=== PATIENT | female | born 1945 | race Caucasian/White ===

== ENCOUNTER → 2024-01-13 15:33 | Outpatient (REF) | payer MEDICARE, BC, SELFPAY | LOC: HWRAD 15:33 | PROVIDERS: ATTENDING PHYSICIAN Family Medicine | DX: R05.1 Acute cough (principal) | CPT/HCPCS: 71046 ==

== ENCOUNTER 2024-12-04 16:26 | Inpatient (IN) | payer MEDICARE, BC, SELFPAY ==
[2024-12-04] VITALS (10 sets, daily range): BP systolic 105–158; BP diastolic 52–99; BMI 37.6; BMI 36.8
[2024-12-04 12:47] LABS: % Basophils 0.8 % (0-2); % Eosinophils 1.7 % (0-6); % Immature Granulocytes 0.4 % (0-0.5); % Lymphocytes 17.1 % (20.5-51.1); % Monocytes 4.8 % (1.7-9.3); % Neutrophils 75.2 % (42.2-75.2); Absolute Basophils 0.1 10^3/uL (0-0.2); Absolute Eosinophils 0.1 10^3/uL (0-0.7); Absolute Lymphocytes 1.3 10^3/uL (1.2-3.4); Absolute Monocytes 0.4 10^3/uL (0.1-0.6); Absolute Neutrophils 5.9 10^3/uL (1.4-6.5); Hematocrit 42.3 % (37.0-47.0); Mean Corp Hgb Conc. 33.1 g/dL (33.0-37.0); Mean Corpuscular Volume 87.8 fL (81.0-99.0); Mean Platelet Volume 9.3 fL (7.4-10.4); Nucleated Red Blood Cells % 0 %; Platelet Count 301 10^3/uL (130-400); Red Blood Cell Count 4.82 10^6/uL (4.20-5.40); Red Cell Dist. Width 13.4 % (11.5-14.5); White Blood Cell Count 7.8 10^3/uL (4.8-10.8)
[2024-12-04 13:00] LABS: ALT (SGPT) 14 U/L (0-35); AST (SGOT) 21 U/L (14-36); Albumin 4.4 g/dl (3.5-5.0); Alkaline Phosphatase 76 U/L (38-126); Blood Urea Nitrogen 20 mg/dl (7-17); Calcium 9.6 mg/dl (8.4-10.2); Carbon Dioxide 26 mmol/L (22-30); Chloride 100 mmol/L (98-107); Glucose 135 mg/dl (70-99); Potassium 4.3 mmol/L (3.5-5.1); Sodium 137 mmol/L (135-145); Total Bilirubin 0.9 mg/dl (0.2-1.3); Total Protein 6.8 g/dl (6.3-8.2); eGFR > 60.00
--- NOTE | 2024-12-04 13:47 | ED.GENMED ---
History of Present Illness
<Rodrigo Hoffman PA-C - Last Filed: 12/04/24 15:45>
General
Chief Complaint: Breathing Problem
Source: patient
Exam Limitations: none
Time Seen by Provider: 12/04/24 13:35
History of Present Illness
History of Present Illness:
79 year old female with history of HTN, hyperlipidemia, remote smoker presents with worsening SOB/HARO over the past 2 weeks. She now notes SOB at rest. No chest pain. No known leg swelling, calf pain or weight gain. She notes SOB is worse laying
flat. Father at early age from [place]. No recent travel or surgery. No history of diabetes. She states last night was the worst it has been. No other complaints at this time.
Past History
<Rodrigo Hoffman PA-C - Last Filed: 12/04/24 15:45>
Past History
ED Past Medical History: HTN
ED Past Surgical History: Gynecological
Social History
Tobacco: Non-smoker
Personal:
Living: with family
Phy Exam
<BOZENA Buck Last Filed: 12/04/24 15:45>
Physical Exam
Physical Exam:
General: Anxious appearing female no acute respiratory distress
HEENT: Normocephalic atraumatic
Heart: Regular rate and rhythm
Lungs: Clear no wheeze
Abdomen is soft nontender nondistended no guarding or rebound
Extremities: Mild pitting edema bilateral lower extremities
Skin: Warm no rash
Scores
<Rodrigo Hoffman PA-C - Last Filed: 12/04/24 15:45>
Heart Failure Risk
Heart Failure Risk Score: Not Applicable
Course
<BOZENA Buck Last Filed: 12/04/24 15:45>
Orders/Labs/Results
Orders:
Orders
12/04/24 12:18
Electrocardiogram (*1) Urgent
Reason for Study: Shortness of Breath
12/04/24 12:19
EKG- Treatment ONCE
12/04/24 12:27
Complete Blood Count/With Diff Urgent
Comprehensive Metabolic Panel Urgent
NT-proBNP Urgent
Comment: ADD ON
Troponin I Urgent
12/04/24 13:53
Add On- LAB Urgent
Comments:: In lab
Tests Added?: BNP
12/04/24 13:57
CT Chest PE Study Urgent
Comment:
Reason For Exam: sob
12/04/24 14:22
COVID-19 Antigen Urgent
Source: Nasal Swab
Influenza A+B Rapid Molecular Urgent
COMPA Source: Nasal Swab
Specimen Description:
12/04/24 14:48
Troponin I Urgent
12/04/24 15:38
Furosemide [Lasix] 40 mg IV NOW STA
Abnormal Lab Results
12/04/24 12/04/24
12:27 14:48
Lymphocytes % 17.1 L %
(20.5-51.1)
BUN 20 H mg/dl
(7-17)
Glucose 135 H mg/dl
(70-99)
Troponin I 0.070 H* ng/ml 0.079 H* ng/ml
12/04/24 12:27
12/04/24 12:27
Vital Signs
Initial and Last Documented VS:
Initial Vital Signs
Temp Pulse Resp BP Pulse Ox
98.5 F 98 16 156/77 92
12/04/24 12:15 12/04/24 12:15 12/04/24 12:15 12/04/24 12:15 12/04/24 12:15
Last Documented Vital Signs
Temp Pulse Resp BP Pulse Ox
98.5 F 98 16 156/77 95
12/04/24 12:15 12/04/24 12:15 12/04/24 12:15 12/04/24 12:15 12/04/24 14:41
<Aldo Singh MD - Last Filed: 12/04/24 15:35>
Orders/Labs/Results
Orders:
Orders
12/04/24 12:18
Electrocardiogram (*1) Urgent
Reason for Study: Shortness of Breath
12/04/24 12:19
EKG- Treatment ONCE
12/04/24 12:27
Complete Blood Count/With Diff Urgent
Comprehensive Metabolic Panel Urgent
NT-proBNP Urgent
Comment: ADD ON
Troponin I Urgent
12/04/24 13:53
Add On- LAB Urgent
Comments:: In lab
Tests Added?: BNP
12/04/24 13:57
CT Chest PE Study Urgent
Comment:
Reason For Exam: sob
12/04/24 14:22
COVID-19 Antigen Urgent
Source: Nasal Swab
Influenza A+B Rapid Molecular Urgent
COMPA Source: Nasal Swab
Specimen Description:
12/04/24 14:48
Troponin I Urgent
12/04/24 15:38
Furosemide [Lasix] 40 mg IV NOW STA
Abnormal Lab Results
12/04/24 12/04/24
12:27 14:48
Lymphocytes % 17.1 L %
(20.5-51.1)
BUN 20 H mg/dl
(7-17)
Glucose 135 H mg/dl
(70-99)
Troponin I 0.070 H* ng/ml 0.079 H* ng/ml
12/04/24 12:27
12/04/24 12:27
Vital Signs
Initial and Last Documented VS:
Initial Vital Signs
Temp Pulse Resp BP Pulse Ox
98.5 F 98 16 156/77 92
12/04/24 12:15 12/04/24 12:15 12/04/24 12:15 12/04/24 12:15 12/04/24 12:15
Last Documented Vital Signs
Temp Pulse Resp BP Pulse Ox
98.5 F 98 16 156/77 95
12/04/24 12:15 12/04/24 12:15 12/04/24 12:15 12/04/24 12:15 12/04/24 14:41
<Rodrigo Hoffman PA-C - Last Filed: 12/04/24 15:45>
MDM/Problems Addressed
Differential Diagnosis Includes:
Shortness of breath dyspnea on exertion and orthopnea. Question CHF versus volume overload versus ACS. No risk factors for PE but D-dimer is pending. BNP is pending. EKG shows sinus rhythm with PVCs no obvious ischemic changes. Troponin is
slightly elevated at 0.070.
No current chest pain at rest, she is in no respiratory distress but minimal exertion does reproduce shortness of breath
<Rodrigo Hoffman PA-C - Last Filed: 12/04/24 15:45>
*Critical Care Note
Total Time (30-74mins, 75-104mins- exclusive of procedures): Not Applicable
<Rodrigo Hoffman PA-C - Last Filed: 12/04/24 15:45>
Update Note
Update Note:
CT of chest was ordered instead of screening with D-dimer secondary to pronounced shortness of breath and hypoxia requiring 4 L. There is no pulmonary embolism. There is small to medium sized bilateral pleural effusions. BNP is 4420. Repeat
troponin about the same as the first. I suspect acute CHF. Lasix ordered. Discussed with emergency room attending admitted to hospitalist
ED Attending Note
<Rodrigo Hoffman PA-C - Last Filed: 12/04/24 15:45>
-
Portions of this chart may have been created with voice recognition software.� Occasional wrong word or��sound alike� substitutions may have occurred due to the inherent limitations of voice recognition software.
<Aldo Singh MD - Last Filed: 12/04/24 15:35>
ED Attending Note
Patient seen and examined by attending physician: Yes
I performed the substantive portion of visit, reviewed & personally made and approve the management plan that is documented in note by myself or PING.: Yes
ED Attending Note:
I have seen and evaluated the patient with a [id number] encounter. I have spoken to the [PA] and involved in the medical history, the physical exam, medical decision making.
Evaluation and management service: agree unless noted differently below.
Results interpretation: agree unless noted differently below.
79-year-old woman with history of hypertension, hyperlipidemia presenting to the emergency room shortness of breath. At first it was on exertion now it is constant. No chest pain. Mild leg swelling. No recent travel hemoptysis history of blood
clots.
On examination patient is resting comfortably. Her lungs are clear to auscultation with fine crackles at the bases. She does have mild edema bilaterally.
79-year-old woman presenting to the emergency room shortness of breath on exertion that is now constant. Vitals are notable for oxygen in the low 90s and exam does show mild edema. Concern for ACS versus new onset CHF however concern for PE as
well. Will check blood work and CT PE. Patient will need admission.
Discharge Plan
Departure
Patient Disposition: Admit
Date of Disposition: 12/04/24
Time of Disposition: 15:44
Presentation/result/management discussed w/ accepting MD/DO: Hospitalist
Discharge Problem:
Acute CHF
Prescriptions:
No Action
cyanocobalamin (vitamin B-12) 1,000 mcg Tablet
1,000 mcg PO DAILY Qty: 0
amlodipine 10 MG tablet
10 mg PO DAILY
simvastatin [Zocor] 20 mg Tablet
20 mg PO HS Qty: 0
Centrum Silver 1 EACH tablet
1 tab PO DAILY
cholecalciferol (vitamin D3) [Vitamin D3] 1,000 UNIT tablet
1,000 unit PO DAILY
omeprazole 20 MG tablet,delayed release (DR/EC)
20 mg PO DAILY
latanoprost 0.005 % Drops
1 drp BOTH EYES HS
temazepam 7.5 mg Capsule
7.5 mg PO HS
duloxetine [Cymbalta] 30 mg Capsule,Delayed Release(Dr/Ec)
30 mg PO DAILY
magnesium glycinate 100 mg Tablet
200 mg PO DAILY
Referrals:
Lory Lester MD [Family Provider] -
Interventions
Interventions:
*Risk Screen - Suicide Last Done: 12/04/24 12:20
*General Assessment Last Done: 12/04/24 13:55
*Neglect/Abuse Screening Last Done: 12/04/24 12:20
*ED- Fall Risk Assessment Last Done: 12/04/24 13:55
*ED COVID-19 Vaccine History Last Done: 12/04/24 13:55
ED- Cardiac Assessment Last Done: 12/04/24 13:55
ED- Pulmonary Assessment Last Done: 12/04/24 14:41
Discharge Date and Time
Print Language: [place]LAND[place]
[2024-12-04 15:07] LABS: NT-proBNP 4420 pg/ml
[2024-12-04 15:22] LABS: Troponin I 0.079 ng/ml
[2024-12-04 15:23] LABS: COVID-19 Antigen Negative (Negative)
--- NOTE | 2024-12-04 15:47 | HPS.HSE ---
Family Physician
-
Family Physician: Lory Lester
Chief Complaint
-
Shortness of Breath
History of Present Illness
Patient is an 79 y/o female past medical history of hypertension, hyperlipidemia, chronic pain and insomnia who presents with shortness of breath. Patient reports increasing dyspnea on exertion over the past few weeks. Last night she developed
worsening shortness of breath even at rest. She denies chest pains, palpitations, cough, lower extremity edema or changes in weight.
Medical History
Past Medical History
Past Medical History: Reports Other
Additional Past Medical History:
Essential Hypertension
Hyperlipidemia
Cervical Radiculopathy
Osteoarthritis
Insomnia
Glaucoma
Past Surgical History: Reports Other
Additional Past Surgical History:
Hysterectomy
Meniscus Surgery
Social History
Tobacco: Former Smoker (Quit over 30 years ago)
Alcohol: Occasional
Family History
Family History: Not pertinent
Allergies / Home Medications
Allergies reflects when Allergies were last updated in [facility].
Home Medications with original date entered in [facility]
Allergy/Medication List:
Allergies
Allergy/AdvReac Type Severity Reaction Status Date / Time
acetaminophen [From Tylenol] Allergy Swelling Verified 07/12/14 23:17
NSAIDS (Non-Steroidal Allergy Unknown Verified 07/12/14 23:17
Anti-Inflamma
Home Medications
amlodipine 10 mg tablet 10 mg PO DAILY 07/12/14
cholecalciferol (vitamin D3) 25 mcg (1,000 unit) tablet (Vitamin D3) 1,000 unit PO DAILY 07/12/14
cyanocobalamin (vitamin B-12) 1,000 mcg tablet 1,000 mcg PO DAILY ##0 07/12/14
xlidtiyt-cac-gnici acid 0.4 mg-lycopene 300 mcg-lutein 250 mcg tablet (Centrum Silver) 1 tab PO DAILY 07/12/14
omeprazole 20 mg tablet,delayed release 20 mg PO DAILY 07/12/14
simvastatin 20 mg tablet (Zocor) 20 mg PO HS ##0 07/12/14
duloxetine 30 mg capsule,delayed release (Cymbalta) 30 mg PO DAILY 12/04/24
latanoprost 0.005 % eye drops 1 drp BOTH EYES HS 12/04/24
magnesium glycinate 100 mg (as glycinate) tablet 200 mg PO DAILY 12/04/24
temazepam 7.5 mg capsule 7.5 mg PO HS 12/04/24
Review of Systems
-
A 12 point ROS was completed and negative except as noted: Yes
Constitutional: Denies Fever or Chills
Respiratory: Reports Trouble Breathing; Denies Cough
Cardiac: Denies Chest Pain or Palpitations
Abdomen/GI: Denies Nausea, Vomiting or Diarrhea
Physical Exam
Vital Signs
Vital Signs
Temp Pulse Resp BP Pulse Ox
98.5 F 98 16 156/77 95
12/04/24 12:15 12/04/24 12:15 12/04/24 12:15 12/04/24 12:15 12/04/24 14:41
Physical Exam
General: Comfortable and Conversant
HEENT: NormoCephalic, Moist mucous membranes, Atraumatic and Oxygen (Nasal Cannula)
Respiratory: Rales (Few faint), Non Labored Respirations and Decreased Breath Sounds (Bilateral Bases)
Cardiac: S1/S2, Regular Rhythm and Murmur (3/6 systolic murmur, patient reports she is not aware she had murmur)
GI: Soft and Non Tender
Rectal: Deferred by Provider
Genito-urinary: Clear Urine
Musculoskeletal: No Clubbing, No Cyanosis and No Edema
Skin: Warm and Dry
Neuro: Awake, Alert and Nonfocal/grossly intact
Psych: Calm
Laboratory Results
-
12/04/24 12:27
03/17/25 12:27
Laboratory Results
Total Bilirubin 0.9 mg/dl (0.2-1.3) 12/04/24 12:27
AST 21 U/L (14-36) 12/04/24 12:27
ALT 14 U/L (0-35) 12/04/24 12:27
Alkaline Phosphatase 76 U/L (38-126) 12/04/24 12:27
Troponin I 0.079 ng/ml H* 12/04/24 14:48
Data Reviewed
-
CT Scan: Report Reviewed by me
Lab Data: Labs Reviewed by me
Impression/Plan
-
Acute Hypoxic Respiratory Insufficiency
-Continue supplemental oxygen
-Wean as tolerated
Acute Heart Failure, unknown type
-Patient with reportedly new murmur thus possibly related to valvular disease
-Consult Cardiology
-Check Echocardiogram
-Continue Lasix 40mg IV Daily
-Monitor Is&Os and Daily Weights
Elevated Troponin, likely non-ischemic myocardial injury in setting of hypoxia and heart failure
-Continue to trend troponin
Essential Hypertension
-Continue amlodipine with hold parameters
Hyperlipidemia
-Continue simvastatin
Chronic Pain Syndrome secondary to Cervical Radiculopathy and Osteoarthritis
-Continue Cymbalta
Insomnia
-Continue temazepam
GERD
-Continue Protonix
Glaucoma
-Continue latanoprost
DVT proph: Lovenox
Code STatus: Full Code
--- NOTE | 2024-12-04 16:05 | CON.CAR ---
Addendum entered and electronically signed by Kamar Seo MD 12/04/24 18:35:
79 yo female with PMH of HTN, heart murmur is admitted with progressive HARO, SOB, orthopnea, edema. We are consulted for new HF. Exam with RRR, II/ systolic murmur at RUSB, trace LE edema. Tele: SR, PAC's, brief SVT. Cr 0.8.
Acute HF, new. Type unknown. May be in setting of valvular HD. Check echo. Continue IV lasix.
Original Note:
Consultation
Consultation Request
Date/Time Consultation Requested: 12/04/24 1603
Date/Time Consultation Performed: 12/04/24 1615
Requesting Provider: Sydney Proctor
Performing Provider: Tanika PRATER for Dr. Seo
Reason for Consultation: CHF
Medical History
-
Chief Complaint: SOB
History of Present Illness:
79 y/o female with hypertension, dyslipidemia, GERD, obesity, and heart murmur (per OP notes, previously declined echo) who is here for evaluation of SOB. It started with HARO for the past few weeks, but has progressed to SOB even at rest. Orthopnea
noted last night. No fever or chills. Non-productive cough at times. No CP. No weight gain or worsened edema, though she does have some mild BLE edema to my review. She is admitted for treatment of acute HF. She is in no distress at the time of my
assessment. She is on O2 by [place]. Her son as at bedside.
Past Medical History
Past Medical History: GERD, HTN, Hypercholesterolemia and Other (as above )
Social History
Tobacco: Former Smoker (quit over 30 years ago)
Family History
Family History: CAD (dad [place] age 62)
Allergies / Home Medications
Allergy/AdvReac Type Severity Reaction Status Date / Time
acetaminophen [From Tylenol] Allergy Swelling Verified 07/12/14 23:17
NSAIDS (Non-Steroidal Allergy Unknown Verified 07/12/14 23:17
Anti-Inflamma
�Medication �Instructions �Recorded �Confirmed �Type
amlodipine 10 mg tablet 10 mg PO DAILY 07/12/14 12/04/24 History
cholecalciferol (vitamin D3) 25 1,000 unit PO DAILY 07/12/14 12/04/24 History
mcg (1,000 unit) tablet (Vitamin
D3)
cyanocobalamin (vitamin B-12) 1,000 mcg PO DAILY ##0 07/12/14 12/04/24 History
1,000 mcg tablet
cfqdtbjw-hzq-oxpfj acid 0.4 1 tab PO DAILY 07/12/14 12/04/24 History
mg-lycopene 300 mcg-lutein 250 mcg
tablet (Centrum Silver)
omeprazole 20 mg tablet,delayed 20 mg PO DAILY 07/12/14 12/04/24 History
release
simvastatin 20 mg tablet (Zocor) 20 mg PO HS ##0 07/12/14 12/04/24 History
duloxetine 30 mg capsule,delayed 30 mg PO DAILY 12/04/24 12/04/24 History
release (Cymbalta)
latanoprost 0.005 % eye drops 1 drp BOTH EYES HS 12/04/24 12/04/24 History
magnesium glycinate 100 mg (as 200 mg PO DAILY 12/04/24 12/04/24 History
glycinate) tablet
temazepam 7.5 mg capsule 7.5 mg PO HS 12/04/24 12/04/24 History
Review of Systems
-
History Source: Patient
All other systems: Negative unless noted
Respiratory: Cough and Trouble Breathing
Physical Exam
Vital Signs
Temp Pulse Resp BP Pulse Ox
98.5 F 98 16 156/77 95
12/04/24 12:15 12/04/24 12:15 12/04/24 12:15 12/04/24 12:15 12/04/24 14:41
Lab Results
12/04/24 12:27
12/04/24 12:27
Troponin I 0.079 ng/ml H* 12/04/24 14:48
Ubq-R-Qkgkjtqgvcb Pept Cancelled 12/04/24 13:47
Physical Exam
General: Well Developed, Well Nourished and No Apparent Distress
HEENT: Normocephalic and Anicteric
Respiratory: Crackles (mild, b/l bases) and Other (on O2 NC)
Cardiac: Regular Rhythm and Murmur (II/ systolic murmur )
Musculoskeletal: Edema (mild BLE edema)
Skin: Warm and Dry
Neuro: AO x 3
Psych: Calm
Impression / Plan
-
Acute HF, type unknown:
-check echo
-agree with IV lasix, which requires intensive monitoring
-CHF education
Murmur, systolic:
-echo as above
Abnormal troponin:
-no CP
-suspect acute, non-ischemic myocardial injury in setting of acute CHF
-trend to peak
-check echo
HTN:
-continue CCB and monitor with diuresis
HLD:
-statin
GERD:
-PPI
Data:
Chest CT: No evidence of central pulmonary embolism. Mild cardiomegaly with small predominantly anterior pericardial effusion. Small bilateral pleural effusions and small bilateral lower lobe consolidations compatible with atelectasis and/or
pneumonia. Overall prominence of the pulmonary interstitium which could represent interstitial edema and/or pneumonitis.
Data Reviewed
-
EKG: Tracing Personally Visualized and interpreted (SR with occ PVC's, LVH)
CT Scan: Report Reviewed by me (as noted)
Medical Tests (Nuc Med, Echo etc): Other (echo ordered)
Labs: Labs Reviewed by me
[2024-12-04] MEDS: LASIX 40 MG IV (16:52)
--- NOTE | 2024-12-04 17:04 | W.PN.UPDATE ---
Update Note
Progress Note Update
This note serves as an addendum to the H&P by collections officer PING Princess HUERTA
HPI
79 year old female with history of HTN, hyperlipidemia, remote smoker presents with worsening SOB/HARO over the past 2 weeks. She now notes SOB at rest. No chest pain. No known leg swelling, calf pain or weight gain. She notes SOB is worse laying
flat. Father at early age from [place]. No recent travel or surgery. No history of diabetes. She states last night was the worst it has been. No other complaints at this time.
PHX
Reviewed VS:
Selected Entries
07/13/14
03:15 12/04/24
12:15 12/04/24
13:55
Temp 98.5 F
Pulse 98
Resp Rate 16
Blood pressure 156/77
SaO2 92
Oxygen Mode of Delivery Room air
Nasal Cannula flow liters per minute
Actual Weight 96.757 kg 87.4 kg
12/04/24
14:41
Temp
Pulse
Resp Rate
Blood pressure
SaO2 95
Oxygen Mode of Delivery
Nasal Cannula flow liters per minute 4
Actual Weight
PE
Gen: acute respiratory distress
HEENT: atraumatic head
Neck: supple
Lungs: CTA
Cor: RRR S1 S2
Abdomen: soft benign
MOLD INSPECTOR: AAO3, NFND
MS: Mild pitting edema bilateral LExs
Psych: apprpriate
12/04/24 12/04/24 12/04/24
12:27 14:22 14:48
WBC 7.8
Hgb 14.0
Plt Count 301
BUN 20 H
Creatinine 0.8
eGFR > 60.00
Troponin I 0.070 H* 0.079 H*
Dox-I-Rmyluqphwvi Pept 4420
SARS-CoV-2 Antigen Negative
NEG Flu A & B
NEG Covid
CT Chest PE Study
- No evidence of central pulmonary embolism.
- Mild cardiomegaly with small predominantly anterior pericardial effusion.
- Small bilateral pleural effusions and small bilateral lower lobe consolidations compatible with atelectasis and/or pneumonia.
- Overall prominence of the pulmonary interstitium which could represent interstitial edema and/or pneumonitis.
ASSESSMENT & PLAN
New onset acute HF with acute hypoxic RI
associated dyspnea with Orthopneic
Elevated proBNP 4420
Not on home O2
- requiring 4l NC O2
- IV Lasix 40 daily
- ECHO
- CBC card
Benign HTN
- stable and normotensive
- c/w MANAGER TALENT ACQUISITION Amlodipine
HLD
- c/w Simvastatin
Depression
- c/w Cymbalta
DVT Px: LMWH
Full code
IP TLM
[2024-12-04] MEDS: LOVENOX 40 MG SC (18:26)
--- NOTE | 2024-12-04 18:28 | PTCARENOTE ---
pt presents from ED via stretcher. pt is AAO*3, Vss, 4L o2. pt denies any pain at this time. son at the bedside updated. pt is orietned to the room. call senior within the reach plan of care ongoing.
[2024-12-04] MEDS: LIPITOR 10 MG PO (21:43)
[2024-12-04] MEDS: RESTORIL 7.5 MG PO (21:43)
[2024-12-04] MEDS: XALATAN OPHTHALMIC SOLUTION 1 DROP BOTH EYES (21:43)
[2024-12-05] VITALS (7 sets, daily range): BP systolic 120–148; BP diastolic 60–87; PULSE 89; O2SAT 99; BMI 36.6
[2024-12-05 04:09] LABS: Troponin I 0.097 ng/ml
[2024-12-05 08:17] LABS: Hematocrit 38.8 % (37.0-47.0); Hemoglobin 13.1 g/dL (12.0-16.0); Mean Corp Hgb Conc. 33.8 g/dL (33.0-37.0); Mean Corpuscular Hgb 29.2 pg (27.0-31.0); Mean Corpuscular Volume 86.6 fL (81.0-99.0); Mean Platelet Volume 9.5 fL (7.4-10.4); Platelet Count 277 10^3/uL (130-400); Red Blood Cell Count 4.48 10^6/uL (4.20-5.40); Red Cell Dist. Width 13.2 % (11.5-14.5); White Blood Cell Count 6.3 10^3/uL (4.8-10.8)
--- NOTE | 2024-12-05 08:18 | W.PN.CD ---
Today's Communication / Plan
-
Cont IV diuresis likely transition to PO tomorrow
Echo pending
Impression / Plan
-
Acute HF, type unknown:
-check echo
-agree with IV lasix, which requires intensive monitoring
-CHF education
- Dry weight is ~183
Murmur, systolic:
-echo as above
- likely
Abnormal troponin:
-no CP
-suspect acute, non-ischemic myocardial injury in setting of acute CHF
-trend to peak
-check echo
HTN:
-continue CCB and monitor with diuresis
HLD:
-statin
GERD:
-PPI
Subjective: NAD anxious about what echo will show
Data:
Chest CT: No evidence of central pulmonary embolism. Mild cardiomegaly with small predominantly anterior pericardial effusion. Small bilateral pleural effusions and small bilateral lower lobe consolidations compatible with atelectasis and/or
pneumonia. Overall prominence of the pulmonary interstitium which could represent interstitial edema and/or pneumonitis.
Physical Exam
Vital Signs/Labs
Vital Signs
Temp Pulse Resp BP Pulse Ox
97.6 F 97 18 126/71 94
12/05/24 03:43 12/05/24 03:43 12/05/24 03:43 12/05/24 03:43 12/05/24 03:43
12/04/24 12/05/24 12/06/24
06:59 06:59 06:59
Actual Weight 187 lb 8 oz
12/05/24 07:44
12/04/24 12/04/24
12:27 13:47
Hih-O-Riplketnekc Pept 4420 Cancelled
LAB Results
12/04/24 12/04/24 12/05/24
12:27 14:48 03:11
Troponin I 0.070 H* 0.079 H* 0.097 H*
Physical Exam
Constitutional: No acute distress and Comfortable
EENT: Anicteric
Cardiovascular: Rhythm & rate is regular, Pedal edema present (trace) and Systolic murmur present
Respiratory: Respiratory effort normal and Lungs clear to auscul.
GI: Soft
Neuro/Psych: AO x 3
Data Reviewed
-
Date of Service: December 05, 2024
EKG: Tracing Personally Visualized and interpreted (sr)
Echo: Tracing Personally Visualized and interpreted
Labs: Labs Reviewed by me
[2024-12-05] MEDS: MAG-TAB SR 84 MG PO (08:36)
[2024-12-05] MEDS: CYMBALTA DELAYED RELEASE 30 MG PO (08:36)
[2024-12-05] MEDS: PROTONIX 40 MG PO (08:36)
[2024-12-05 08:43] LABS: Procalcitonin < 0.05 ng/ml (0.0-0.25)
[2024-12-05 09:10] LABS: Troponin I 0.083 ng/ml
[2024-12-05 09:12] LABS: Blood Urea Nitrogen 21 mg/dl (7-17); Calcium 9.2 mg/dl (8.4-10.2); Carbon Dioxide 28 mmol/L (22-30); Chloride 104 mmol/L (98-107); Estimated Creatinine Clearance 47 ml/min; Glucose 95 mg/dl (70-99); HDL Cholesterol 54 mg/dl; LDL Cholesterol, Calculated 74 mg/dl; Potassium 4.3 mmol/L (3.5-5.1); Sodium 138 mmol/L (135-145); Total Cholesterol 153 mg/dl (50-199); Triglyceride 128 mg/dl (10-149); Very Low Density Lipoprotein 25 mg/dl (0-30); eGFR > 60.00
[2024-12-05 10:02] LABS: TSH Reflex To Free T4 3.12 uIU/ml (0.47-4.68)
--- NOTE | 2024-12-05 11:16 | W.PN.HOSP.TC ---
Today's Communication/Plan
-
Monitor vital signs
see plan
Continue with IV diuresis
Wean oxygen as tolerated
cardiology following
Assessment / Plan
Assessment / Plan
General: Comfortable and Conversant
HEENT: NormoCephalic, Moist mucous membranes, Atraumatic and Oxygen (Nasal Cannula)
Respiratory: Rales (Few faint), Non Labored Respirations and Decreased Breath Sounds
Cardiac: S1/S2, Regular Rhythm and Systolic murmur
GI: Soft and Non Tender
Rectal: Deferred by Provider
Genito-urinary: Clear Urine
Musculoskeletal: No Edema
Neuro: Awake, Alert and Nonfocal/grossly intact
Psych: Calm
Acute Hypoxic Respiratory Insufficiency likely 2/2 acute CHF
-Continue supplemental oxygen
-Wean as tolerated; currently on 4L
Acute Heart Failure With preserved ejection fraction likely secondary to severe
-cardiology following
Echocardiogram 12/05 with preserved EF, severe aortic stenosis. will likely need TAVR evaluation
-Continue IV lasix
-Monitor Is&Os and Daily Weights
CT chest with also overall prominence of pulmonary interstitium which could present interstitial edema and/or pneumonitis. Pro-Alphonse negative. Suspect this is likely secondary to interstitial edema.
Elevated Troponin, likely non-ischemic myocardial injury in setting of hypoxia and heart failure
-Continue to trend troponin
Essential Hypertension
-Continue amlodipine with hold parameters
Hyperlipidemia
-Continue simvastatin
Chronic Pain Syndrome secondary to Cervical Radiculopathy and Osteoarthritis
-Continue Cymbalta
Insomnia
-Continue temazepam
GERD
-Continue Protonix
Glaucoma
-Continue latanoprost
DVT proph: Lovenox
Code STatus: Full Code
I spent a total of 52 minutes with the patient or on the floor. More than 50% of this time involved counseling and coordination of care.
Anticipated Discharge: 24 - 48 hours
Subjective/Interval History
-
Date of Service: December 05, 2024
denies pain
Objective Data
-
Labs:
Laboratory Results
12/05/24
07:44
WBC 6.3
Hgb 13.1
Hct 38.8
Plt Count 277
Sodium 138
Potassium 4.3
Chloride 104
Carbon Dioxide 28
BUN 21 H
Creatinine 0.9
Glucose 95
Calcium 9.2
Vital Signs:
Vital Signs
Temp Pulse Resp BP Pulse Ox
98.2 F 92 20 120/60 91
12/05/24 07:45 12/05/24 07:45 12/05/24 07:45 12/05/24 07:45 12/05/24 07:45
I&O
12/04/24 12/05/24 12/06/24
06:59 06:59 06:59
Intake Total 480 / 480
Balance 480 / 480
[2024-12-05] MEDS: LASIX 40 MG IV ×2 (11:35→16:51)
[2024-12-05] MEDS: NORVASC 10 MG PO (11:36)
--- NOTE | 2024-12-05 16:30 | CM ---
supply chain design manager reviewed patient's chart and met with patient and patient states she lives alone in a one story home with ramp to enter, patient is independent with adl's and ambulation, she has a cane at home that she does not use, patient is
currently on 3 liters of oxygen, patient did not require oxygen prior to admission, rn case manager discussed home care and patient states she is not sure if she will need home care at discharge.
PCP: Lory Lester
Pharmacy [facility] in [place]
Plan; Home when stable, look out got home oxygen needs, patient may benefit from visiting nurses if patient agrees to it.
[2024-12-05] MEDS: LOVENOX 40 MG SC (16:53)
[2024-12-05] MEDS: RESTORIL 7.5 MG PO (21:33)
[2024-12-05] MEDS: LIPITOR 10 MG PO (21:33)
[2024-12-05] MEDS: XALATAN OPHTHALMIC SOLUTION 1 DROP BOTH EYES (21:35)
[2024-12-06] VITALS (14 sets, daily range): BP systolic 110–138; BP diastolic 57–99; BMI 36.0
--- NOTE | 2024-12-06 04:24 | DOWNTIME ---
There was a [employer] Downtime on 12/06/2024 from 0100 to 12/07/2023 at 0420 . Downtime documentation of patient's care, including medication administrations, has been reconciled in the electronic record per guidelines. Refer to the
patient's paper chart under the miscellaneous tab to see printed paper medication records and downtime forms.
[2024-12-06 06:48] LABS: % Basophils 0.6 % (0-2); % Eosinophils 4.7 % (0-6); % Immature Granulocytes 0.3 % (0-0.5); % Lymphocytes 22.9 % (20.5-51.1); % Monocytes 7.7 % (1.7-9.3); % Neutrophils 63.8 % (42.2-75.2); Absolute Eosinophils 0.3 10^3/uL (0-0.7); Absolute Lymphocytes 1.4 10^3/uL (1.2-3.4); Absolute Monocytes 0.5 10^3/uL (0.1-0.6); Hematocrit 38.5 % (37.0-47.0); Hemoglobin 12.8 g/dL (12.0-16.0); Mean Corp Hgb Conc. 33.2 g/dL (33.0-37.0); Mean Corpuscular Hgb 28.8 pg (27.0-31.0); Mean Corpuscular Volume 86.5 fL (81.0-99.0); Mean Platelet Volume 9.4 fL (7.4-10.4); Nucleated Red Blood Cells % 0 %; Platelet Count 252 10^3/uL (130-400); Red Blood Cell Count 4.45 10^6/uL (4.20-5.40); Red Cell Dist. Width 13.1 % (11.5-14.5); White Blood Cell Count 6.2 10^3/uL (4.8-10.8)
[2024-12-06 07:14] LABS: Blood Urea Nitrogen 35 mg/dl (7-17); Carbon Dioxide 28 mmol/L (22-30); Chloride 100 mmol/L (98-107); Estimated Creatinine Clearance 42 ml/min; Glucose 95 mg/dl (70-99); Potassium 4.1 mmol/L (3.5-5.1); Sodium 137 mmol/L (135-145)
--- NOTE | 2024-12-06 08:49 | W.PN.CD ---
Today's Communication / Plan
-
NPO cath today
Impression / Plan
-
Acute on chronic HFpEF:
-Cont diuresis
-CHF education
- Dry weight is ~183
Severe/critical mean 60 mmHg, mod severe AI
- cath today for further work up
Mod MS and Mod MR
- will start BB
Pulm HTN on echo
- diuresis and heart cath today
Abnormal troponin:
-no CP
-suspect acute, non-ischemic myocardial injury in setting of acute CHF
HTN:
-continue CCB and monitor with diuresis
HLD:
-statin
GERD:
-PPI
Subjective: Discussed cath today and agreeable
Data:
Echo December 05: CONCLUSIONS
-Left ventricular ejection fraction is 55-60%. Normal regional wall motion.
Stage II diastolic dysfunction suggestive of abnormal relaxation and increased
filling pressures.
-Normal right ventricular size and function.
-Severely dilated left atrium.
-Moderate mitral stenosis; peak/mean gradients 16/8 mmHg. Moderate mitral
regurgitation.
-Critical aortic stenosis; peak/mean gradients 96/63 mmHg, calculated YVONNE 0.5
cm2. Moderate to severe aortic regurgitation (PHT = 286 ms).
-Mild to moderate tricuspid regurgitation. Estimated pulmonary artery pressure
of 50-55 mmHg.
No prior study available for comparison.
Chest CT: No evidence of central pulmonary embolism. Mild cardiomegaly with small predominantly anterior pericardial effusion. Small bilateral pleural effusions and small bilateral lower lobe consolidations compatible with atelectasis and/or
pneumonia. Overall prominence of the pulmonary interstitium which could represent interstitial edema and/or pneumonitis.
Physical Exam
Vital Signs/Labs
Vital Signs
Temp Pulse Resp BP Pulse Ox
98.1 F 96 20 119/57 96
12/06/24 03:40 12/06/24 03:40 03/19/25 03:40 12/06/24 03:40 12/06/24 03:40
12/05/24 12/06/24 12/07/24
06:59 06:59 06:59
Actual Weight 187 lb 8 oz 184 lb 4 oz
12/06/24 06:13
12/06/24 06:13
Magnesium 2.0 mg/dl (1.6-2.3) 12/05/24 07:44
Triglycerides 128 mg/dl (10-149) 12/05/24 07:44
LDL Cholesterol, Calc 74 mg/dl 12/05/24 07:44
VLDL Cholesterol, Calc 25 mg/dl (0-30) 12/05/24 07:44
HDL Cholesterol 54 mg/dl 12/05/24 07:44
12/04/24 12/04/24
12:27 13:47
Dbw-T-Ulhhccunaro Pept 4420 Cancelled
LAB Results
12/04/24 12/04/24 12/05/24
12:27 14:48 03:11
Troponin I 0.070 H* 0.079 H* 0.097 H*
12/05/24
07:44
Troponin I 0.083 H*
Physical Exam
Constitutional: No acute distress
EENT: Anicteric
Cardiovascular: Rhythm & rate is regular and Pedal edema present (trivial)
Respiratory: Respiratory effort normal and Lungs clear to auscul.
GI: Soft
Neuro/Psych: AO x 3
Data Reviewed
-
Date of Service: December 06, 2024
EKG: Tracing Personally Visualized and interpreted (sr)
Echo: Report Reviewed by me
Labs: Labs Reviewed by me
[2024-12-06] MEDS: MAG-TAB SR 84 MG PO (09:33)
[2024-12-06] MEDS: PROTONIX 40 MG PO (09:34)
[2024-12-06] MEDS: CYMBALTA DELAYED RELEASE 30 MG PO (09:34)
[2024-12-06] MEDS: NORVASC PO (09:34)
--- NOTE | 2024-12-06 11:45 | ITS.CL.CATH ---
[facility] - Catheterization
Cardiac Catheterization
Procedure Report:
CARDIAC CATHETERIZATION REPORT
Date of Procedure: 12/06/2024
Referring: Jaylon Hatch M.D.
Indication: Severe multi valvular disease.
PROCEDURE:
1. Right heart catheterization.
2. Coronary angiography.
3. Left heart catheterization.
4. Aortic valve interrogation.
5. Mitral valve interrogation.
6. Left ventriculography.
7. Aortography.
A total of 30 minutes of procedural/moderate sedation was utilized. An independent medical physics teacher was present to assist with and help manage the patient's level of consciousness and physiologic status.
ACCESS:
1. 6 [place] right radial artery using a modified Seldinger technique. There is a loop in the radial artery which does not allow for full advancement of the sheath wire and sheath but is easily crossed by a baby J-wire.
2. 5 [place] right antecubital vein using a modified Seldinger technique under ultrasound guidance. Ultrasound image obtained.
CATHETERS:
1. 5 [place] balloon wedge.
2. 5 [place] JR4.
3. 5 [place] JL 3.5.
4. 5 [place] AL-1.
5. 6 [place] Kwesi dual-lumen pigtail catheter.
HEMODYNAMIC DATA
Weight (kg): 83.5
AO (s/d/x, mmHg): 102/64/79
LV (s/x, mmHg): 208/21
PCWP (a/v/x, mmHg): 31/29/24
PA (s/d/x, mmHg): 61/29/40
RV (s/x, mmHg): 61/10
RA (a/v/x, mmHg): 15//10
SVC SvO2 (%): 75.5
IVC SvO2 (%): Not obtained.
RA SvO2 (%): Not obtained.
RV SvO2 (%): Not obtained.
PA SvO2 (%): 70.7
SaO2 (%): 94.4
Hbg (g/dL): 13.1
MARISOL
CO (L/min): 4.12
CI (L/min/m2): 2.29
Thermodilution
CO (L/min): Not performed.
CI (L/min/m2): Not performed.
TPG (mmHg): 16
PVR (Varner Units): 3.88
SVR (dynes*seconds*cm^-5): 1340
AVO2 Diff (Volume %): 4.22
AV gradient (x, mmHg): 75.35
AV area (cm2): 0.34
MV gradient (x, mmHg): 6.73
MV area (cm2): 2.04
LEFT VENTRICULOGRAPHY: Performed in an MANN projection. Normal left ventricular size with grossly preserved systolic function and no obvious regional wall motion abnormalities. Left ventricular ejection fraction estimated at 55%. There is
gabe-circumferential mitral annular calcification. There is at least moderate mitral valve regurgitation. There is no obvious aortic valve insufficiency.
AORTOGRAPHY: Performed in an MANN projection. The aortic root, ascending aorta, aortic arch and descending thoracic aorta appear normal. There is no evidence of dissection. There is calcification with evidence of atheroma in the aortic arch.
There is no significant aortic valve insufficiency.
CORONARY ANGIOGRAPHY
Dominance: Right.
Left Main: Short, bifurcating vessel. There is no coronary artery disease.
LAD: Normal size vessel giving rise to 2 diagonals. The vessel is nonselectively imaged due to catheter preference for the circumflex. There is no significant coronary artery disease.
Ramus: Congenitally absent.
Circumflex: Large size, nondominant vessel giving rise to 3 obtuse marginals. OM1 is a small to medium size vessel. OM 2 is the largest of the branches supplying the majority of the lateral wall. OM 3 is a reasonably sized branch supplying the
inferolateral territory. There is a 40% lesion in the distal circumflex as it gives rise to OM 3.
RCA: Normal size, dominant vessel. The RPDA is relatively small and supplies the proximal interventricular septum. The distal inferior interventricular septum is supplied by septal perforators arising from the acute marginal branch.
INTERVENTIONS
None.
Closure Device: Vascular band for the right radial artery, manual pressure for the right antecubital vein.
Radiation dose (mGy): 551.20
DAP (cm2.Gy): 58.7088
Fluoroscopy time (minutes): 8.6
CONCLUSIONS:
1. Right dominant circulation with a 40% lesion in the distal circumflex as it gives rise to OM 3.
2. Moderately elevated filling pressures (LVEDP = 21 mmHg, PCWP = 24 mmHg at 83.5 kg).
3. Critical aortic valve stenosis (mean gradient 75.35 mmHg, YVONNE = 0.34 cm�).
4. Mitral annular calcification with mild mitral stenosis (mean gradient 6.73 mmHg, MVA = 2.04 cm�).
5. Preserved left ventricular systolic function (LVEF = 55%, cardiac index = 2.29 L/min/m�).
6. At least moderate mitral valve regurgitation.
7. Moderate, combined precapillary and postcapillary pulmonary hypertension (mean PA = 40 mmHg, PCWP = 24 mmHg, cardiac output = 4.12 L/min, PVR = 3.88 Varner units), WHO group 2, possibly group 3.
RECOMMENDATIONS:
1. Expectant management after cardiac catheterization via right radial/antecubital approach.
2. Limited weight bearing on the right wrist for one week.
3. Any further cardiac catheterization from the right radial artery should be aware of the right radial artery loop.
4. Aggressive primary prevention with high-dose, high potency statin. Goal LDL <55.
5. Continue diuresis.
6. OMT/GDMT as hemodynamics will tolerate.
7. Consideration of transcatheter aortic valve replacement.
Copy to: Jaylon Hatch M.D., Lory Lester M.D.
Sabino Fuentes, DO, FACC, FACP
--- NOTE | 2024-12-06 11:49 | W.PN.HOSP.TC ---
Today's Communication/Plan
-
Monitor vital signs see plan
Discussed with cardiology, plan for cardiac cath today
N.p.o. for now
Continue with diuresis
Wean oxygen as tolerated
Will need home O2 evaluation
Assessment / Plan
Assessment / Plan
General: Comfortable and Conversant
HEENT: NormoCephalic, Moist mucous membranes, Atraumatic and Oxygen (Nasal Cannula)
Respiratory: Rales (Few faint), Non Labored Respirations and Decreased Breath Sounds
Cardiac: S1/S2, Regular Rhythm and Systolic murmur
GI: Soft and Non Tender
Rectal: Deferred by Provider
Genito-urinary: Clear Urine
Musculoskeletal: No Edema
Neuro: Awake, Alert and Nonfocal/grossly intact
Psych: Calm
Acute Hypoxic Respiratory Insufficiency likely 2/2 acute CHF
-Continue supplemental oxygen
-Wean as tolerated; currently on 3L. Will need home O2 evaluation prior to discharge
Acute Heart Failure With preserved ejection fraction likely secondary to severe
-cardiology following
Echocardiogram 12/05 with preserved EF, severe aortic stenosis. will likely need TAVR evaluation
-Continue IV lasix
-Monitor Is&Os and Daily Weights
CT chest with also overall prominence of pulmonary interstitium which could present interstitial edema and/or pneumonitis. Pro-Alphonse negative. Suspect this is likely secondary to interstitial edema.
Discussed with cardiology. Plan for cardiac catheterization today
Elevated Troponin, likely non-ischemic myocardial injury in setting of hypoxia and heart failure
monitor
Essential Hypertension
-Continue amlodipine with hold parameters
Hyperlipidemia
-Continue simvastatin
Chronic Pain Syndrome secondary to Cervical Radiculopathy and Osteoarthritis
-Continue Cymbalta
Insomnia
-Continue temazepam
GERD
-Continue Protonix
Glaucoma
-Continue latanoprost
DVT proph: Lovenox
Code STatus: Full Code
I spent a total of 53 minutes with the patient or on the floor. More than 50% of this time involved counseling and coordination of care.
Anticipated Discharge: 24 - 48 hours
Subjective/Interval History
-
Date of Service: December 06, 2024
denies chest pain
Objective Data
-
Labs:
Laboratory Results
12/06/24
06:13
WBC 6.2
Hgb 12.8
Hct 38.5
Plt Count 252
Sodium 137
Potassium 4.1
Chloride 100
Carbon Dioxide 28
BUN 35 H
Creatinine 1.0
Glucose 95
Calcium 9.0
Vital Signs:
Vital Signs
Temp Pulse Resp BP Pulse Ox
98.5 F 95 20 112/67 97
12/06/24 07:45 12/06/24 07:45 12/06/24 07:45 12/06/24 07:45 12/06/24 07:45
I&O
12/05/24 12/06/24 12/07/24
06:59 06:59 06:59
Intake Total 600 / 600 240 / 240
Output Total 900 / 900 450 / 450
Balance -300 / -300 -210 / -210
[2024-12-06] MEDS: LASIX IV (14:49)
[2024-12-06] MEDS: LOVENOX 40 MG SC (18:06)
[2024-12-06] MEDS: RESTORIL 7.5 MG PO (21:56)
[2024-12-06] MEDS: LIPITOR 10 MG PO (21:56)
[2024-12-06] MEDS: XALATAN OPHTHALMIC SOLUTION 1 DROP BOTH EYES (21:57)
[2024-12-07 03:55] VITALS: BP 122/60
[2024-12-07 06:00] VITALS: BMI 36.3
[2024-12-07 06:59] VITALS: BP 106/65
--- NOTE | 2024-12-07 06:59 | W.PN.CD ---
Today's Communication / Plan
-
Resume diuresis.
TAVR workup.
PFTs.
Increase atorvastatin to 40 mg daily.
Monitor labs. Start GDMT (dapagliflozin) when possible.
Impression / Plan
-
Impression/Plan: 79 y/o female with HTN, HLD, obesity and previously documented murmur (declined echo) now admitted with acute (on chronic) HFpEF, found to have multivalvular disease and a mildly elevated troponin.
#HFpEF
-Acute on chronic.
-Driven, in large part, by critical aortic valve stenosis.
-LVEDP = 21 mmHg, PCWP = 24 mmHg.
-Wean oxygen.
-Dry weight is ~183 lbs.
-Furosemide held yesterday in anticipation of cardiac catheterization. Redose today.
-GMDT as hemodynamics will tolerate, but intervention on her valve is what will be necessary.
#Aortic valve disease
-Long standing murmur, but new diagnosis.
-Mean = 60 mmHg on echo, 75 mmHg on cath.
-Moderate/severe AI on echo, none on cath.
-Catheterization completed.
-TAVR evaluation.
#Mitral valve disease
-New diagnosis.
-Moderate MS/Mild MR on echo.
-Mild MS/Moderate MR on cath.
-Medical management.
#Pulm HTN
-New diagnosis.
-Seen on echo, confirmed on cath.
-PVR is just > 3, implying some underlying non-filling pressure related pathology (precapillary), but still primarily driven by elevated filling pressures.
-Her oxygen dependence is out of proportion to her filling pressures and pHTN.
-Check PFTs and wean oxygen.
#Abnormal troponin:
-Acute.
-No obstructive CAD.
-This is a non-ischemic troponin elevation.
#HTN:
-Chronic, stable.
-Continue amlodipine and monitor with diuresis.
#Non-obstructive CAD/HLD:
-HLD is chronic, non-obstructive CAD is a new diagnosis.
-Increase atorvastatin to 40 mg daily.
#GERD:
-Chronic, stable.
-Continue PPI.
Subjective/Interval History:
Weight is up 0.8 kg from yesterday.
Cath shows non-obstructive CAD, critical , mild MS, moderate MR, moderate pHTN, LVEDP = 21 mmHg and PCWP = 24 mmHg.
SaO2 = 96% on 2LNC.
Data:
Transthoracic Echo 12/05/2024:
CONCLUSIONS
-Left ventricular ejection fraction is 55-60%. Normal regional wall motion.
Stage II diastolic dysfunction suggestive of abnormal relaxation and increased
filling pressures.
-Normal right ventricular size and function.
-Severely dilated left atrium.
-Moderate mitral stenosis; peak/mean gradients 16/8 mmHg. Moderate mitral
regurgitation.
-Critical aortic stenosis; peak/mean gradients 96/63 mmHg, calculated YVONNE 0.5
cm2. Moderate to severe aortic regurgitation (PHT = 286 ms).
-Mild to moderate tricuspid regurgitation. Estimated pulmonary artery pressure
of 50-55 mmHg.
No prior study available for comparison.
Chest CT:
No evidence of central pulmonary embolism. Mild cardiomegaly with small predominantly anterior pericardial effusion. Small bilateral pleural effusions and small bilateral lower lobe consolidations compatible with atelectasis and/or pneumonia.
Overall prominence of the pulmonary interstitium which could represent interstitial edema and/or pneumonitis.
Cardiac Catheterization, 12/06/2024:
CONCLUSIONS:
1. Right dominant circulation with a 40% lesion in the distal circumflex as it gives rise to OM 3.
2. Moderately elevated filling pressures (LVEDP = 21 mmHg, PCWP = 24 mmHg at 83.5 kg).
3. Critical aortic valve stenosis (mean gradient 75.35 mmHg, YVONNE = 0.34 cm�).
4. Mitral annular calcification with mild mitral stenosis (mean gradient 6.73 mmHg, MVA = 2.04 cm�).
5. Preserved left ventricular systolic function (LVEF = 55%, cardiac index = 2.29 L/min/m�).
6. At least moderate mitral valve regurgitation.
7. Moderate, combined precapillary and postcapillary pulmonary hypertension (mean PA = 40 mmHg, PCWP = 24 mmHg, cardiac output = 4.12 L/min, PVR = 3.88 Varner units), WHO group 2, possibly group 3.
Physical Exam
Vital Signs/Labs
Vital Signs
Temp Pulse Resp BP Pulse Ox
36.9 C 92 20 122/60 96
12/07/24 03:55 12/07/24 03:55 12/07/24 03:55 12/07/24 03:55 12/07/24 03:55
12/05/24 12/06/24 12/07/24
11:59 11:59 11:59
Actual Weight 85.049 kg 83.574 kg
Magnesium 2.0 mg/dl (1.6-2.3) 12/05/24 07:44
Triglycerides 128 mg/dl (10-149) 12/05/24 07:44
LDL Cholesterol, Calc 74 mg/dl 12/05/24 07:44
VLDL Cholesterol, Calc 25 mg/dl (0-30) 12/05/24 07:44
HDL Cholesterol 54 mg/dl 12/05/24 07:44
12/04/24 12/04/24
12:27 13:47
Aep-J-Pdfdeqltqko Pept 4420 Cancelled
LAB Results
12/04/24 12/04/24 12/05/24
12:27 14:48 03:11
Troponin I 0.070 H* 0.079 H* 0.097 H*
12/05/24
07:44
Troponin I 0.083 H*
Physical Exam
Constitutional: No acute distress and Comfortable
EENT: Anicteric and Moist mucous membranes
Cardiovascular: Rhythm & rate is regular, Pedal edema is absent, JVD pressure is normal, Systolic murmur present and S1S2 is normal
Respiratory: Respiratory effort normal, Wheeze Absent, Rhonchi Absent and Crackles Present (Mild, bibasilar.)
GI: Soft, Distention absent, Flat, Non tender and Normal bowel sounds
Neuro/Psych: AO x 3
Other: Cath Site (Right radial/antecubital access sites are C/D/I.)
Data Reviewed
-
Date of Service: December 07, 2024
Medical Decision Making: Reviewed Test Results, Independent Historian Assessment, Test Interpretation and Review of Case with other Provider
EKG: Tracing Personally Visualized and interpreted and Report Reviewed by me
Echo: Tracing Personally Visualized and interpreted and Report Reviewed by me
X-Ray/CT/US/MRI/NUC/PET: Image Personally Visualized and interpreted and Report Reviewed by me
Medical Tests (PFT, Pathology etc): Image Personally Visualized and interpreted, Report Reviewed by me, Discussed with Patient and Discussed with Family
Labs: Labs Reviewed by me
Old Records: Reviewed
--- NOTE | 2024-12-07 08:08 | CONSULT.STRU ---
Consultation
-
Date/Time Consultation Requested: 12/06/2024
Date/Time Consultation Performed: 12/07/2024
Requesting Provider: Sabino Fuentes DO
Performing Provider: JOSI Egan
Reason for Consultation: /TAVR
Patient History
Physicians
Family Physician: Lory Lester MD
Outpatient Channel Development Director: Kamar Seo MD
Primary Channel Development Director: Kamar Seo MD
History of Present Illness
Ms. Dee is a very pleasant 79 yof with a past medical history significant for , dyslipidemia, Htn, GERD, hypercholesterolemia, former tobacco abuse, and osteoarthritis. Her most recent echocardiogram from 12/05/2024 is notable for EF 50-60%,
aortic valve P/M 96/63, YVONNE 0.5, moderate ms, moderate MR, mild to moderate TR, PAP 50-55%. Cardiac catheterization from 12/06/2024 demonstrated Right dominant circulation with a 40% lesion in the distal circumflex as it gives rise to OM 3.
Moderately elevated filling pressures (LVEDP = 21 mmHg, PCWP = 24 mmHg at 83.5 kg). Critical aortic valve stenosis (mean gradient 75.35 mmHg, YVONNE = 0.34 cm�).Mitral annular calcification with mild mitral stenosis (mean gradient 6.73 mmHg, MVA = 2.04
cm�).Preserved left ventricular systolic function (LVEF = 55%, cardiac index = 2.29 L/min/m�). At least moderate mitral valve regurgitation. Moderate, combined precapillary and postcapillary pulmonary hypertension (mean PA = 40 mmHg, PCWP = 24
mmHg, cardiac output = 4.12 L/min, PVR = 3.88 Varner units), WHO group 2, possibly group 3.. Discussed the pathophysiology and treatment options of aortic stenosis including TAVR and SAVR. Explained the evaluation process comprising of repeat blood
work, CT scan, CT surgical consult, dental clearance, and a heart team discussion. Appointments, prescriptions, and contact information given to patient. Allowed for and answered questions for patient and her son Ezequiel (on speaker) at bedside.
Past Medical History
Past Medical History: GERD, HTN, Hypercholesterolemia and Valvular Disease (, MS, MR, TR)
Past Surgical History
Past Surgical History: Hysterectomy and Orthopedic (meniscus repair)
Dental History
Patient will need to find a dentist.
Family History
Mother: N/A
Father: N/A
Family Medical History: Early CAD
Social History
Tobacco: Former Smoker
Allergies
Allergy/AdvReac Type Severity Reaction Status Date / Time
aspirin Allergy Severe Tongue Verified 12/06/24 11:36
Swelling
acetaminophen [From Tylenol] Allergy Swelling Verified 07/12/14 23:17
NSAIDS (Non-Steroidal Allergy Tongue Verified 12/06/24 11:30
Anti-Inflamma Swelling
Home Medications
�Medication �Instructions �Recorded �Confirmed �Type
amlodipine 10 mg tablet 10 mg PO DAILY Blood Pressure 07/12/14 12/04/24 History
cholecalciferol (vitamin D3) 25 1,000 unit PO DAILY Supplement 07/12/14 12/04/24 History
mcg (1,000 unit) tablet (Vitamin
D3)
cyanocobalamin (vitamin B-12) 1,000 mcg PO DAILY Supplement ##0 07/12/14 12/04/24 History
1,000 mcg tablet
swcybmav-uea-ehcmy acid 0.4 1 tab PO DAILY Supplement 07/12/14 12/04/24 History
mg-lycopene 300 mcg-lutein 250 mcg
tablet (Centrum Silver)
omeprazole 20 mg tablet,delayed 20 mg PO DAILY Gastrointestinal 07/12/14 12/04/24 History
release Issue
simvastatin 20 mg tablet (Zocor) 20 mg PO HS ##0 07/12/14 12/04/24 History
duloxetine 30 mg capsule,delayed 30 mg PO DAILY Chronic pain 12/04/24 12/04/24 History
release (Cymbalta) syndrome
latanoprost 0.005 % eye drops 1 drp BOTH EYES HS Eye Condition 12/04/24 12/04/24 History
magnesium glycinate 100 mg (as 200 mg PO DAILY Supplement 12/04/24 12/04/24 History
glycinate) tablet
temazepam 7.5 mg capsule 7.5 mg PO HS 12/04/24 12/04/24 History
spironolactone 25 mg tablet mg HS 12/05/24 History
STS%
STS %: 3.12
Review of Systems
-
History Source: Patient
General: Reports Fatigue
HEENT: Reports No Symptoms
Respiratory: Reports Other (HARO)
Cardiac: Reports No Symptoms
Skin: Reports No Symptoms
Neurological: Reports No Symptoms
Physical Exam
Vital Signs
Temp 98.4 F 12/07/24 03:55
Temp route: Oral 12/07/24 03:55
Pulse 92 12/07/24 03:55
Rhythm: Normal sinus rhythm 12/06/24 20:15
With- PAC's, Sinus arrhythmia 12/06/24 20:15
Resp Rate 20 12/07/24 03:55
Blood pressure 122/60 12/07/24 03:55
Blood pressure extremity used: Left upper arm 12/07/24 03:55
Position: Lying 12/07/24 03:55
MAP (cuff-Jose Monitor) 71 12/04/24 17:00
SaO2 96 12/07/24 03:55
Nasal Cannula flow liters per minute 2 12/07/24 03:55
Oxygen Mode of Delivery Room air 12/05/24 15:45
Pulse Ox at Rest 99 12/05/24 13:35
Can the patient verbally communicate their pain? Yes 12/06/24 20:15
Actual Weight 84.368 kg 12/07/24 06:00
Body Mass Index (BMI) 36.3 12/07/24 06:00
Sitting- Blood Pressure 141/87 12/05/24 13:35
Sitting- Pulse 89 12/05/24 13:35
Oxygen Saturation with Activity 95 12/05/24 13:35
Labs
Troponin I 0.083 ng/ml H* 12/05/24 07:44
Ivx-Y-Vlkxdpdbnwq Pept Cancelled 12/04/24 13:47
Diagnostic Studies
ECHOCARDIOGRAM 12/05/2024
CONCLUSIONS
-Left ventricular ejection fraction is 55-60%. Normal regional wall motion.
Stage II diastolic dysfunction suggestive of abnormal relaxation and increased
filling pressures.
-Normal right ventricular size and function.
-Severely dilated left atrium.
-Moderate mitral stenosis; peak/mean gradients 16/8 mmHg. Moderate mitral
regurgitation.
-Critical aortic stenosis; peak/mean gradients 96/63 mmHg, calculated YVONNE 0.5
cm2. Moderate to severe aortic regurgitation (PHT = 286 ms).
-Mild to moderate tricuspid regurgitation. Estimated pulmonary artery pressure
of 50-55 mmHg.
CARDIAC CATHETERIZATION 12/06/2024
CONCLUSIONS:
1. Right dominant circulation with a 40% lesion in the distal circumflex as it gives rise to OM 3.
2. Moderately elevated filling pressures (LVEDP = 21 mmHg, PCWP = 24 mmHg at 83.5 kg).
3. Critical aortic valve stenosis (mean gradient 75.35 mmHg, YVONNE = 0.34 cm�).
4. Mitral annular calcification with mild mitral stenosis (mean gradient 6.73 mmHg, MVA = 2.04 cm�).
5. Preserved left ventricular systolic function (LVEF = 55%, cardiac index = 2.29 L/min/m�).
6. At least moderate mitral valve regurgitation.
7. Moderate, combined precapillary and postcapillary pulmonary hypertension (mean PA = 40 mmHg, PCWP = 24 mmHg, cardiac output = 4.12 L/min, PVR = 3.88 Varner units), WHO group 2, possibly group 3.
Procedure Type:�Isolated AVR
Perioperative Outcome Estimate %
Operative Mortality 3.12%
Morbidity & Mortality 10.2%
Stroke 1.36%
Renal Failure 1.58%
Reoperation 3.24%
Prolonged Ventilation 5.39%
Deep Sternal Wound Infection 0.043%
Long Hospital Stay (>14 days) 5.62%
Short Hospital Stay (<6 days)* 32.2%
Exam
General: Well Developed and Well Nourished
Respiratory: Crackles (bibasilar)
Cardiac: Regular Rhythm and Murmur (IV/ ALLIE)
GI: Soft and Non Tender
Rectal: Deferred by Provider
Skin: Warm and Dry
Neuro: Awake, Alert, Oriented and AO x 3
Psych: Calm
Assessment / Plan
-
Aortic stenosis
Continue TAVR evaluation
Trend creatinine-Rx given
TAVR CT scan 12/25
Surgical consullt-MPT 01/02
Frailty testing and [id number] at consult
Dental clearance
Heart team discusion
[2024-12-07 08:48] LABS: % Basophils 0.6 % (0-2); % Eosinophils 4.4 % (0-6); % Immature Granulocytes 0.4 % (0-0.5); % Monocytes 8.1 % (1.7-9.3); % Neutrophils 65.5 % (42.2-75.2); Absolute Eosinophils 0.2 10^3/uL (0-0.7); Absolute Lymphocytes 1.1 10^3/uL (1.2-3.4); Absolute Monocytes 0.4 10^3/uL (0.1-0.6); Absolute Neutrophils 3.6 10^3/uL (1.4-6.5); Hematocrit 36.8 % (37.0-47.0); Hemoglobin 12.2 g/dL (12.0-16.0); Mean Corp Hgb Conc. 33.2 g/dL (33.0-37.0); Mean Corpuscular Hgb 28.6 pg (27.0-31.0); Mean Corpuscular Volume 86.2 fL (81.0-99.0); Mean Platelet Volume 9.5 fL (7.4-10.4); Nucleated Red Blood Cells % 0 %; Platelet Count 244 10^3/uL (130-400); Red Blood Cell Count 4.27 10^6/uL (4.20-5.40); Red Cell Dist. Width 13.2 % (11.5-14.5); White Blood Cell Count 5.4 10^3/uL (4.8-10.8)
[2024-12-07 09:03] LABS: Blood Urea Nitrogen 26 mg/dl (7-17); Calcium 8.8 mg/dl (8.4-10.2); Carbon Dioxide 26 mmol/L (22-30); Chloride 101 mmol/L (98-107); Estimated Creatinine Clearance 53 ml/min; Glucose 95 mg/dl (70-99); Sodium 135 mmol/L (135-145); eGFR > 60.00
[2024-12-07] MEDS: CYMBALTA DELAYED RELEASE 30 MG PO (09:20)
[2024-12-07] MEDS: MAG-TAB SR 84 MG PO (09:20)
[2024-12-07] MEDS: PROTONIX 40 MG PO (09:20)
[2024-12-07] MEDS: NORVASC PO (09:20)
[2024-12-07] MEDS: LASIX 40 MG IV ×2 (09:21→16:47)
--- NOTE | 2024-12-07 09:56 | W.PN.HOSP.TC ---
Today's Communication/Plan
-
see A/P
Assessment / Plan
Assessment / Plan
A/P:
# Acute Hypoxic Respiratory Insufficiency likely 2/2 acute CHF
Continue supplemental oxygen at 2 L NC, wean as tolerated; Will need home O2 evaluation prior to discharge
# Acute Heart Failure with preserved ejection fraction likely secondary to severe
cardiology following
Echo 12/05 with preserved EF, severe aortic stenosis. will likely need TAVR evaluation
Continue IV lasix. Monitor Is&Os and Daily Weights
CT chest with also overall prominence of pulmonary interstitium which could present interstitial edema and/or pneumonitis. Pro-Alphonse negative. Suspect this is likely secondary to interstitial edema.
Discussed with cardiology.
s/p Cath 12/06: Consideration of transcatheter aortic valve replacement.
PFT today per card
# Elevated Troponin, 2/2 non-ischemic myocardial injury in setting of hypoxia and heart failure
# Essential Hypertension
Continue amlodipine with hold parameters
# Hyperlipidemia
home simvastatin -> atorvastatin increased to 40 mg daily.
# Chronic Pain Syndrome secondary to Cervical Radiculopathy and Osteoarthritis
Continue Cymbalta
# Insomnia
Continue temazepam
# GERD
Continue Protonix
# Glaucoma
Continue latanoprost
DVT proph: Lovenox
Code STatus: Full Code
Dispo: HH vs no need per PT eval
DW son at bedside
total time spent 51 min
Anticipated Discharge: 24 - 48 hours
Subjective/Interval History
-
Date of Service: December 07, 2024
Objective Data
-
Labs:
Laboratory Results
12/07/24
07:15
WBC 5.4
Hgb 12.2
Hct 36.8 L
Plt Count 244
Sodium 135
Potassium 4.0
Chloride 101
Carbon Dioxide 26
BUN 26 H
Creatinine 0.8
Glucose 95
Calcium 8.8
Vital Signs:
Vital Signs
Temp Pulse Resp BP Pulse Ox
36.8 C 89 18 106/65 95
12/07/24 06:59 12/07/24 06:59 12/07/24 06:59 12/07/24 09:21 12/07/24 06:59
I&O
12/06/24 12/07/24 12/08/24
06:59 06:59 06:59
Intake Total 600 / 600 960 / 960
Output Total 900 / 900 750 / 750 485 / 485
Balance -300 / -300 210 / 210 -485 / -485
Review of Systems
-
All other systems: Reviewed and negative
Physical Exam
-
General: Well Developed, Well Nourished, Comfortable, Respiratory Distress (mild) and Conversant
HEENT: Normocephalic, Atraumatic, Nose Appears Normal, Ears Appear Normal and Oxygen (2L NC)
Respiratory: Clear to Auscultation and Non Labored Respirations; Negative Accessory Resp Muscle Use
Cardiac: Regular Rhythm and S1/S2
GI: Soft, Nontender, Nondistended and Normal Bowel Sounds
Musculoskeletal: Edema, Right Lower Extrem (mild) and Edema, Left Lower Extrem (mild)
Skin: Warm and Dry
Neuro: Awake, Alert, Oriented and AO x 3
Psych: Calm and Intact Judgement/Insight
Data Reviewed
-
Medical Tests (Nuc Med, Echo etc): Report Reviewed by me (cath report )
Labs: Labs Reviewed by me
[2024-12-07 11:50] VITALS: BP 151/60
--- NOTE | 2024-12-07 13:58 | CM ---
Chart reviewed and per physician patient has multiple medical issues right now, patient is currently on oxygen and will need follow up.
Plan; Home with family when stable.
[2024-12-07 15:50] VITALS: BP 123/64; PULSE 89; O2SAT 95
[2024-12-07 15:56] VITALS: BP 123/64
[2024-12-07] MEDS: LOVENOX 40 MG SC (18:35)
[2024-12-07] MEDS: RESTORIL 7.5 MG PO (21:07)
[2024-12-07] MEDS: LIPITOR 40 MG PO (21:08)
[2024-12-07] MEDS: XALATAN OPHTHALMIC SOLUTION 1 DROP BOTH EYES (21:09)
[2024-12-07 23:27] VITALS: BP 108/58
[2024-12-08 06:00] VITALS: BMI 36.3
[2024-12-08 07:10] LABS: Blood Urea Nitrogen 30 mg/dl (7-17); Calcium 9.5 mg/dl (8.4-10.2); Carbon Dioxide 30 mmol/L (22-30); Chloride 99 mmol/L (98-107); Estimated Creatinine Clearance 43 ml/min; Glucose 99 mg/dl (70-99); Potassium 3.9 mmol/L (3.5-5.1); Sodium 137 mmol/L (135-145)
--- NOTE | 2024-12-08 07:12 | W.PN.CD ---
Today's Communication / Plan
-
Change furosemide to 80 mg IV x1, then furosemide 80 mg PO BID.
Expedited TAVR evaluation ongoing.
Start dapagliflozin 10 mg daily. Case management consult.
Outpatient BMP in one week.
Discharge planning (tomorrow).
Impression / Plan
-
Impression/Plan: 79 y/o female with HTN, HLD, obesity and previously documented murmur (declined echo) now admitted with acute (on chronic) HFpEF, found to have multivalvular disease and a mildly elevated troponin.
#HFpEF
-Acute on chronic.
-Driven, in large part, by critical aortic valve stenosis.
-LVEDP = 21 mmHg, PCWP = 24 mmHg.
-Wean oxygen.
-Dry weight is ~183 lbs.
-Minimal diuresis with furosemide 40 mg IV BID. Furosemide 80 mg IV x1 and convert to furosemide 80 mg PO BID.
-GMDT as hemodynamics will tolerate, but intervention on her valve is what will be necessary.
-Start dapagliflozin 10 mg daily. Case management consult.
-She will need an outpatient BMP in one week to monitor renal function.
#Aortic valve disease
-Long standing murmur, but new diagnosis.
-Mean = 60 mmHg on echo, 75 mmHg on cath.
-Moderate/severe AI on echo, none on cath.
-Catheterization completed.
-TAVR evaluation ongoing. Expedited review given her mean gradient/valve indices.
#Mitral valve disease
-New diagnosis.
-Moderate MS/Mild MR on echo.
-Mild MS/Moderate MR on cath.
-Medical management.
#Pulm HTN
-New diagnosis.
-Seen on echo, confirmed on cath.
-PVR is just > 3, implying some underlying non-filling pressure related pathology (precapillary), but still primarily driven by elevated filling pressures.
-PFT's show decreased TLC, DLCO. Chest CT does not comment on any intrinsic pulmonary disease.
#Abnormal troponin:
-Acute.
-No obstructive CAD.
-This is a non-ischemic troponin elevation.
#HTN:
-Chronic, stable.
-Continue amlodipine and monitor with diuresis.
#Non-obstructive CAD/HLD:
-HLD is chronic, non-obstructive CAD is a new diagnosis.
-Increase atorvastatin to 40 mg daily.
#GERD:
-Chronic, stable.
-Continue PPI.
#Dispo
-Discharge planning, likely tomorrow to make sure she tolerates PO furosemide.
Subjective/Interval History:
Weight stable even after resumption of furosemide.
PFT's shows decreased TLC, DLCO, normal FVC/FEV1 (weight related restriction?).
Supplemental oxygen weaned.
Feels well.
Data:
Transthoracic Echo 12/05/2024:
CONCLUSIONS
-Left ventricular ejection fraction is 55-60%. Normal regional wall motion.
Stage II diastolic dysfunction suggestive of abnormal relaxation and increased
filling pressures.
-Normal right ventricular size and function.
-Severely dilated left atrium.
-Moderate mitral stenosis; peak/mean gradients 16/8 mmHg. Moderate mitral
regurgitation.
-Critical aortic stenosis; peak/mean gradients 96/63 mmHg, calculated YVONNE 0.5
cm2. Moderate to severe aortic regurgitation (PHT = 286 ms).
-Mild to moderate tricuspid regurgitation. Estimated pulmonary artery pressure
of 50-55 mmHg.
No prior study available for comparison.
Chest CT:
No evidence of central pulmonary embolism. Mild cardiomegaly with small predominantly anterior pericardial effusion. Small bilateral pleural effusions and small bilateral lower lobe consolidations compatible with atelectasis and/or pneumonia.
Overall prominence of the pulmonary interstitium which could represent interstitial edema and/or pneumonitis.
Cardiac Catheterization, 12/06/2024:
CONCLUSIONS:
1. Right dominant circulation with a 40% lesion in the distal circumflex as it gives rise to OM 3.
2. Moderately elevated filling pressures (LVEDP = 21 mmHg, PCWP = 24 mmHg at 83.5 kg).
3. Critical aortic valve stenosis (mean gradient 75.35 mmHg, YVONNE = 0.34 cm�).
4. Mitral annular calcification with mild mitral stenosis (mean gradient 6.73 mmHg, MVA = 2.04 cm�).
5. Preserved left ventricular systolic function (LVEF = 55%, cardiac index = 2.29 L/min/m�).
6. At least moderate mitral valve regurgitation.
7. Moderate, combined precapillary and postcapillary pulmonary hypertension (mean PA = 40 mmHg, PCWP = 24 mmHg, cardiac output = 4.12 L/min, PVR = 3.88 Varner units), WHO group 2, possibly group 3.
Physical Exam
Vital Signs/Labs
Vital Signs
Temp Pulse Resp BP Pulse Ox
36.6 C 83 18 108/58 94
12/07/24 23:27 12/07/24 23:27 12/07/24 23:27 12/07/24 23:27 12/07/24 23:27
12/06/24 12/07/24 12/08/24
11:59 11:59 11:59
Actual Weight 83.574 kg 84.368 kg 84.397 kg
12/07/24 07:15
12/08/24 06:09
Magnesium 2.0 mg/dl (1.6-2.3) 12/08/24 06:09
Triglycerides 128 mg/dl (10-149) 12/05/24 07:44
LDL Cholesterol, Calc 74 mg/dl 12/05/24 07:44
VLDL Cholesterol, Calc 25 mg/dl (0-30) 12/05/24 07:44
HDL Cholesterol 54 mg/dl 12/05/24 07:44
12/04/24 12/04/24
12:27 13:47
[id number] Pept 4420 Cancelled
LAB Results
12/05/24
07:44
Troponin I 0.083 H*
Physical Exam
Constitutional: No acute distress and Comfortable
EENT: Anicteric and Moist mucous membranes
Cardiovascular: Rhythm & rate is regular, JVD pressure is normal, Pedal edema present, Systolic murmur present and S1S2 is normal
Respiratory: Respiratory effort normal, Wheeze Absent, Crackles Absent, Rhonchi Absent and Other (Decreased at bases.)
GI: Soft, Distention absent, Flat, Non tender and Normal bowel sounds
Neuro/Psych: AO x 3
Data Reviewed
-
Date of Service: December 08, 2024
Medical Decision Making: Reviewed Test Results, Independent Historian Assessment, Test Interpretation and Review of Case with other Provider
EKG: Tracing Personally Visualized and interpreted and Report Reviewed by me
Echo: Tracing Personally Visualized and interpreted and Report Reviewed by me
X-Ray/CT/US/MRI/NUC/PET: Image Personally Visualized and interpreted and Report Reviewed by me
Medical Tests (PFT, Pathology etc): Image Personally Visualized and interpreted, Report Reviewed by me, Discussed with Physician and Discussed with Patient
Labs: Labs Reviewed by me
Old Records: Reviewed
[2024-12-08 07:42] VITALS: BP 130/69
[2024-12-08] MEDS: LASIX 80 MG IV (07:59)
[2024-12-08] MEDS: NORVASC PO (08:00)
[2024-12-08] MEDS: FARXIGA 10 MG PO (08:01)
[2024-12-08] MEDS: MAG-TAB SR 84 MG PO (08:02)
[2024-12-08] MEDS: CYMBALTA DELAYED RELEASE 30 MG PO (08:02)
[2024-12-08] MEDS: PROTONIX 40 MG PO (08:02)
--- NOTE | 2024-12-08 09:17 | W.PN.HOSP.TC ---
Today's Communication/Plan
-
see A/P
Assessment / Plan
Assessment / Plan
A/P:
# Acute Hypoxic Respiratory Insufficiency likely 2/2 acute CHF
2 L NC weaned back to RA
Check formal walking pulse prior to discharge
# Acute Heart Failure with preserved ejection fraction likely secondary to severe
CT chest noted overall prominence of pulmonary interstitium which could present interstitial edema and/or pneumonitis. Pro-Alphonse negative. Suspect this is likely secondary to interstitial edema.
Echo 12/05 with preserved EF, severe aortic stenosis.
s/p Cath 12/06: recc consideration of transcatheter aortic valve replacement.
TAVR evaluation per card.
IV lasix -> 80 mg PO BID.
Started dapagliflozin 10 mg daily.
Outpatient BMP in one week.
Follow PFT for TAVR
cardiology following
# Elevated Troponin, 2/2 non-ischemic myocardial injury in setting of hypoxia and heart failure
# Essential Hypertension
Continue amlodipine with hold parameters
# Hyperlipidemia
home simvastatin -> atorvastatin and increased to 40 mg daily.
# Chronic Pain Syndrome secondary to Cervical Radiculopathy and Osteoarthritis
Continue Cymbalta
# Insomnia
Continue temazepam
# GERD
Continue Protonix
# Glaucoma
Continue latanoprost
DVT proph: Lovenox
Code STatus: Full Code
Dispo: HH vs no need per PT eval
Anticipated Discharge: Within 24 hours
Subjective/Interval History
-
Date of Service: December 08, 2024
Objective Data
-
Labs:
Laboratory Results
12/08/24
06:09
Sodium 137
Potassium 3.9
Chloride 99
Carbon Dioxide 30
BUN 30 H
Creatinine 1.0
Glucose 99
Calcium 9.5
Vital Signs:
Vital Signs
Temp Pulse Resp BP Pulse Ox
36.9 C 91 18 117/53 92
12/08/24 07:42 12/08/24 07:42 12/08/24 07:42 12/08/24 07:59 12/08/24 07:42
I&O
12/07/24 12/08/24 12/09/24
06:59 06:59 06:59
Intake Total 960 / 960 840 / 840
Output Total 750 / 750 2535 / 2535
Balance 210 / 210 -1695 / -1695
Review of Systems
-
All other systems: Reviewed and negative
Physical Exam
-
General: Well Developed, Well Nourished, No Apparent Distress, Comfortable and Conversant
HEENT: Normocephalic, Atraumatic, Nose Appears Normal and Ears Appear Normal
Respiratory: Clear to Auscultation and Non Labored Respirations; Negative Accessory Resp Muscle Use
Cardiac: Regular Rhythm and S1/S2
GI: Soft, Nontender, Nondistended and Normal Bowel Sounds
Musculoskeletal: Edema, Right Lower Extrem (mild) and Edema, Left Lower Extrem (mild)
Skin: Warm and Dry
Neuro: Awake, Alert, Oriented and AO x 3
Psych: Calm and Intact Judgement/Insight
Data Reviewed
-
Medical Tests (Nuc Med, Echo etc): Report Reviewed by me (cath report )
Labs: Labs Reviewed by me
--- NOTE | 2024-12-08 10:54 | CM ---
manager of housekeeping reviewed patient's chart and met with patient and son this morning and patient to return to home when stable, patient is currently on room air, per cardiology they would like to check cost of Farxiga and cost of Farxiga is $140.65 per
month and patient is agreeable to cost, coupon provided.
Plan; Home when stable.
[2024-12-08 15:39] VITALS: BP 125/69
[2024-12-08 15:59] VITALS: BP 122/76; PULSE 82; O2SAT 96
[2024-12-08] MEDS: LASIX 80 MG PO (16:38)
[2024-12-08] MEDS: LOVENOX 40 MG SC (18:43)
[2024-12-08] MEDS: LIPITOR 40 MG PO (21:15)
[2024-12-08] MEDS: XALATAN OPHTHALMIC SOLUTION 1 DROP BOTH EYES (21:15)
[2024-12-08] MEDS: RESTORIL 7.5 MG PO (21:15)
[2024-12-08 23:15] VITALS: BP 115/64
[2024-12-09 05:26] VITALS: BMI 35.9
--- NOTE | 2024-12-09 07:03 | W.PN.HOSP.TC ---
Today's Communication/Plan
-
Discharge today
Assessment / Plan
Assessment / Plan
Physical Exam
General: Not in acute distress
HEENT: Normocephalic, Atraumatic
Respiratory: Clear to Auscultation Bilaterally
Cardiac: Regular Rhythm and S1/S2
GI: Soft, Nontender, Nondistended and Normal Bowel Sounds
Musculoskeletal: Edema, Right Lower Extrem (mild); Edema, Left Lower Extrem (mild)
Skin: Warm and Dry
Neuro: Awake, Alert, Oriented x 3
Psych: Calm and Intact Judgement/Insight
Assessment/Plan
# Acute Hypoxic Respiratory Insufficiency - RESOLVED - likely 2/2 acute HFpEF
2 L NC previously weaned back to room air
No home oxygen needed as per formal home oxygen assessment
# Acute Heart Failure with preserved ejection fraction (HFpEF) likely secondary to severe
CT chest noted overall prominence of pulmonary interstitium which could present interstitial edema and/or pneumonitis. Pro-Alphonse negative. Suspect this is likely secondary to interstitial edema.
Echo 12/05 with preserved EF, severe aortic stenosis.
[facility].
TAVR evaluation per card.
Status post IV Lasix
On discharge, continue Lasix 80 mg PO BID
Started dapagliflozin 10 mg daily.
Outpatient BMP in one week.
Outpatient pulmonary follow-up given PFT findings
cardiology following
#Non-obstructive CAD
-Stop home Simvastatin
-Continue Atorvastatin at 40 mg daily
#Pulmonary Hypertension
#Aortic Valve Disease
#Mitral valve disease
# Elevated Troponin, 2/2 non-ischemic myocardial injury in setting of hypoxia and heart failure
# Essential Hypertension
Continue amlodipine with hold parameters
# Hyperlipidemia
home simvastatin -> atorvastatin and increased to 40 mg daily.
# Chronic Pain Syndrome secondary to Cervical Radiculopathy and Osteoarthritis
Continue Cymbalta
# Insomnia
Continue temazepam
# GERD
Continue Protonix
# Glaucoma
Continue latanoprost
DVT proph: Lovenox
Code STatus: Full Code
More than 30 minutes spent in discharge including
Final examination of the patient
Summarizing hospital stay
Instructions for continuing care to all relevant caregivers
Preparation of discharge records, prescriptions, and referral forms
Total time spent (in minutes): 39
Anticipated Discharge: Today
Subjective/Interval History
-
Date of Service: December 09, 2024
Patient was seen and examined. She denied any chest pain or shortness of breath, and she stated that she would like to go home today.
Objective Data
-
Labs:
Laboratory Results
12/09/24
06:45
Sodium Pending
Potassium Pending
Chloride Pending
Carbon Dioxide Pending
BUN Pending
Creatinine Pending
Glucose Pending
Calcium Pending
Vital Signs:
Vital Signs
Temp Pulse Resp BP Pulse Ox
97.7 F 83 18 115/64 95
12/08/24 23:15 12/08/24 23:15 12/08/24 23:15 12/08/24 23:15 12/08/24 23:15
I&O
12/08/24 12/09/24 12/10/24
06:59 06:59 06:59
Intake Total 840 / 840 540 / 540
Output Total 2535 / 2535 1950 / 1950
Balance -1695 / -1695 -1410 / -1410
[2024-12-09 07:25] VITALS: BP 152/83
[2024-12-09] MEDS: LASIX 80 MG PO (09:15)
[2024-12-09] MEDS: NORVASC 10 MG PO (09:15)
[2024-12-09] MEDS: FARXIGA 10 MG PO (09:15)
[2024-12-09] MEDS: CYMBALTA DELAYED RELEASE 30 MG PO (09:15)
[2024-12-09] MEDS: MAG-TAB SR 84 MG PO (09:15)
[2024-12-09] MEDS: FLUSH (NSS) 1 FLUSH IV (09:16)
[2024-12-09] MEDS: PROTONIX 40 MG PO (09:16)
[2024-12-09 09:29] LABS: Blood Urea Nitrogen 33 mg/dl (7-17); Calcium 9.4 mg/dl (8.4-10.2); Carbon Dioxide 32 mmol/L (22-30); Chloride 98 mmol/L (98-107); Estimated Creatinine Clearance 47 ml/min; Glucose 98 mg/dl (70-99); Potassium 3.9 mmol/L (3.5-5.1); Sodium 137 mmol/L (135-145); eGFR > 60.00
--- NOTE | 2024-12-09 11:41 | W.PN.CD ---
Today's Communication / Plan
-
TAVR evaluation to continue as outpatient
continue lasix 80mg bid, farxiga 10mg daily
discharge planning
please call us with additional questions
Impression / Plan
-
Impression/Plan: 79 y/o female with HTN, HLD, obesity and previously documented murmur (declined echo) now admitted with acute (on chronic) HFpEF, found to have multivalvular disease and a mildly elevated troponin.
#HFpEF: improved s/p IV lasix
-Acute on chronic.
-Driven, in large part, by critical aortic valve stenosis.
-LVEDP = 21 mmHg, PCWP = 24 mmHg.
-Wean oxygen.
-Dry weight is ~183 lbs.
-continue furosemide 80 mg PO BID.
-GMDT as hemodynamics will tolerate, but intervention on her valve is what will be necessary.
-Started dapagliflozin 10 mg daily.
-She will need an outpatient BMP in one week to monitor renal function.
#Aortic valve disease
-Long standing murmur, but new diagnosis.
-Mean = 60 mmHg on echo, 75 mmHg on cath.
-Moderate/severe AI on echo, none on cath.
-Catheterization completed.
-TAVR evaluation ongoing. Expedited review given her mean gradient/valve indices.
#Mitral valve disease
-New diagnosis.
-Moderate MS/Mild MR on echo.
-Mild MS/Moderate MR on cath.
-Medical management.
#Pulm HTN
-New diagnosis.
-Seen on echo, confirmed on cath.
-PVR is just > 3, implying some underlying non-filling pressure related pathology (precapillary), but still primarily driven by elevated filling pressures.
-PFT's show decreased TLC, DLCO. Chest CT does not comment on any intrinsic pulmonary disease.
#Abnormal troponin:
-Acute.
-No obstructive CAD.
-This is a non-ischemic troponin elevation.
#HTN:
-Chronic, stable.
-Continue amlodipine and monitor with diuresis.
#Non-obstructive CAD/HLD:
-HLD is chronic, non-obstructive CAD is a new diagnosis.
-Increase atorvastatin to 40 mg daily.
#GERD:
-Chronic, stable.
-Continue PPI.
Data:
Transthoracic Echo 12/05/2024:
CONCLUSIONS
-Left ventricular ejection fraction is 55-60%. Normal regional wall motion.
Stage II diastolic dysfunction suggestive of abnormal relaxation and increased
filling pressures.
-Normal right ventricular size and function.
-Severely dilated left atrium.
-Moderate mitral stenosis; peak/mean gradients 16/8 mmHg. Moderate mitral
regurgitation.
-Critical aortic stenosis; peak/mean gradients 96/63 mmHg, calculated YVONNE 0.5
cm2. Moderate to severe aortic regurgitation (PHT = 286 ms).
-Mild to moderate tricuspid regurgitation. Estimated pulmonary artery pressure
of 50-55 mmHg.
No prior study available for comparison.
Chest CT:
No evidence of central pulmonary embolism. Mild cardiomegaly with small predominantly anterior pericardial effusion. Small bilateral pleural effusions and small bilateral lower lobe consolidations compatible with atelectasis and/or pneumonia.
Overall prominence of the pulmonary interstitium which could represent interstitial edema and/or pneumonitis.
Cardiac Catheterization, 12/06/2024:
CONCLUSIONS:
1. Right dominant circulation with a 40% lesion in the distal circumflex as it gives rise to OM 3.
2. Moderately elevated filling pressures (LVEDP = 21 mmHg, PCWP = 24 mmHg at 83.5 kg).
3. Critical aortic valve stenosis (mean gradient 75.35 mmHg, YVONNE = 0.34 cm�).
4. Mitral annular calcification with mild mitral stenosis (mean gradient 6.73 mmHg, MVA = 2.04 cm�).
5. Preserved left ventricular systolic function (LVEF = 55%, cardiac index = 2.29 L/min/m�).
6. At least moderate mitral valve regurgitation.
7. Moderate, combined precapillary and postcapillary pulmonary hypertension (mean PA = 40 mmHg, PCWP = 24 mmHg, cardiac output = 4.12 L/min, PVR = 3.88 Varner units), WHO group 2, possibly group 3.
Physical Exam
Vital Signs/Labs
Vital Signs
Temp Pulse Resp BP Pulse Ox
97.8 F 92 18 152/83 97
12/09/24 07:25 12/09/24 09:15 12/09/24 07:25 12/09/24 09:15 12/09/24 07:25
12/08/24 12/09/24 12/10/24
06:59 06:59 06:59
Actual Weight 84.397 kg 83.461 kg
12/07/24 07:15
12/09/24 08:31
Magnesium 2.0 mg/dl (1.6-2.3) 12/09/24 08:31
Triglycerides 128 mg/dl (10-149) 12/05/24 07:44
LDL Cholesterol, Calc 74 mg/dl 12/05/24 07:44
VLDL Cholesterol, Calc 25 mg/dl (0-30) 12/05/24 07:44
HDL Cholesterol 54 mg/dl 12/05/24 07:44
12/04/24 12/04/24
12:27 13:47
[id number] Pept 4420 Cancelled
Physical Exam
Constitutional: No acute distress and Comfortable
EENT: Moist mucous membranes
Cardiovascular: Rhythm & rate is regular, Pedal edema present, JVD present and Systolic murmur present
Respiratory: Respiratory effort normal and Lungs clear to auscul.
Neuro/Psych: AO x 3
Data Reviewed
-
Date of Service: December 09, 2024
Labs: Labs Reviewed by me
--- NOTE | 2024-12-09 14:38 | W.DCSUMMARY ---
Discharge Summary
Discharge Data
Date of Admission: 12/04/24
Date of Discharge: 12/09/24
Total time spent discharging patient (in min): 39
-
Pending Results: No
Hospital Course
79 y/o female with past medical history of hypertension, hyperlipidemia, chronic pain and insomnia who presented with shortness of breath. Patient was admitted with acute heart failure (found to have acute on chronic HFpEF) and started on
intravenous Lasix. Cardiology was consulted. Echocardiogram was done, showing left ventricular ejection fraction of 55-60%, stage II diastolic dysfunction suggestive of abnormal relaxation and increased filling pressures, severely dilated left
atrium, moderate mitral stenosis, moderate mitral regurgitation, critical aortic stenosis, moderate to severe aortic regurgitation, mild to moderate tricuspid regurgitation and estimated pulmonary artery pressures of 50-[address] Chest was done
and showed as per radiologist, 'No evidence of central pulmonary embolism. Mild cardiomegaly with small predominantly anterior pericardial effusion. Small bilateral pleural effusions and small bilateral lower lobe consolidations compatible with
atelectasis and/or pneumonia. Overall prominence of the pulmonary interstitium which could represent interstitial edema and/or pneumonitis.' On 12/06/24, patient had a cardiac cath, which showed per cardiology 'non-obstructive CAD, critical , mild
MS, moderate MR, moderate pHTN, LVEDP = 21 mmHg and PCWP = 24 mmHg.' Patient was started on Atorvastatin. In preparation for TAVR in the near future, patient had pulmonary function tests done, which showed per assistant store manager trainee's report, 'Mild to
moderate restriction with severe gas exchange defect.' Patient was given additional Furosemide. Patient was started on Farxiga. On the day of discharge, patient was doing well without any shortness of breath or chest pain on the day of discharge,
and she was able to ambulate well without a need for any home oxygen.
Discharge Plan
-
Patient Disposition: Home with Home Care
Discharge Diagnosis/Procedures: Acute Heart Failure with preserved ejection fraction secondary to severe aortic stenosis- for TAVR eval;
Acute Hypoxic Respiratory Insufficiency due to heart failure- resolved;
Non-obstructive coronary artery disease
Pulmonary Hypertension
Aortic Valve Disease
Mitral valve disease
Elevated Troponin, secondary to non-ischemic myocardial injury in setting of hypoxia and heart failure
Essential Hypertension
Hyperlipidemia
Chronic Pain Syndrome secondary to Cervical Radiculopathy and Osteoarthritis
Insomnia
Gastroesophageal Reflux Disease
Glaucoma
Condition: Fair
Diet: As tolerated, Low Sodium and Restrict fluids to 64 oz
Activity: As tolerated
Driving Restrictions: As prior to admission
Blood Work: PLEASE GET YOUR LAB WORK NEXT WEEK (12/14 OR 12/15). PLEASE FAX RESULTS TO [phone] [facility].
Others Tests: YOUR CT SCAN IS SCHEDULED FOR 12/25/2024 @ 9:30 AT [facility]. NOTHING TO EAT OR DRINK [address] SCAN. PLEASE BRING A LIST OF YOUR MEDICATIONS. YOU MAY TAKE YOUR MORNING MEDICATIONS BEFORE COMING IN FOR YOUR CT
SCAN.
YOU WILL NEED DENTAL CLEARANCE PRIOR TO YOUR VALVE REPLACEMENT
Specialty Instructions: Weigh Daily- Call MD for wt gain/loss 3 lbs overnight/5 lbs in 1 week
Instructions: *CBC Heart Failure Instructions
Referrals:
Kamar Seo MD [Active] - in less than 1 week (Hospital follow-up, CHF, TAVR evaluation)
Lory Lester MD [Family Provider] - in less than 1 week
Aide Choudhary DO [Active] - in two to three weeks (Mild to moderate restriction with severe gas exchange defect on hospital PFTs result/report; getting evaluated for TAVR outpatient)
Sarah Gore CRNP [Specified Professional Personl] -
Abraham March MD [Active] - 01/02/25 10:30 am
Additional Discharge Medication Instructions: Simvastatin has been stopped and replaced with a new medication called Atorvastatin 40 mg daily.
Dapagliflozin is a new medication.
Furosemide is a new medication.
Spironolactone is on hold -- contact lining stuffer within the next 1 week regarding if and when to resume this medication.
Prescriptions:
New
dapagliflozin propanediol 10 mg Tablet
10 mg PO DAILY Qty: 30 1RF
furosemide 80 mg Tablet
80 mg PO BID@0800,1600 Qty: 60 1RF
atorvastatin 40 mg Tablet
40 mg PO HS Qty: 30 1RF
Continued
cyanocobalamin (vitamin B-12) 1,000 mcg Tablet
1,000 mcg PO DAILY Qty: 0
amlodipine 10 MG tablet
10 mg PO DAILY
Centrum Silver 1 EACH tablet
1 tab PO DAILY
cholecalciferol (vitamin D3) [Vitamin D3] 1,000 UNIT tablet
1,000 unit PO DAILY
omeprazole 20 MG tablet,delayed release (DR/EC)
20 mg PO DAILY
latanoprost 0.005 % Drops
1 drp BOTH EYES HS
temazepam 7.5 mg Capsule
7.5 mg PO HS
duloxetine [Cymbalta] 30 mg Capsule,Delayed Release(Dr/Ec)
30 mg PO DAILY
magnesium glycinate 100 mg Tablet
200 mg PO DAILY
Held
spironolactone 25 mg Tablet
HS
Hold Instructions: Resume on 01/27/25. Contact lining stuffer within the next 7 days to see if and when you should resume this medication.
Discontinued
simvastatin [Zocor] 20 mg Tablet
20 mg PO HS Qty: 0
Discharge Orders:
Discharge Patient (As Directed); Ordered 12/09/24
Ordered By: João Escobar
Discharge Date and Time
Discharge Date/Time: 12/09/24 16:08
Print Language: FAROESE
[2024-12-09 14:52] VITALS: BP 139/77
--- NOTE | 2024-12-09 15:03 | CM ---
Cm reviewed medical records. No discharge needs noted
PLAN: home with no needs.
--- NOTE | 2024-12-11 10:58 | W.HF.CON ---
Heart Failure
- LV Function
Left ventricular function study result: LV Ejection fraction >/= 50%
Ejection Fraction Percentage: 55-60
- ARNI
Patient already on ARNI: No
Heart Failure ARNI Not Indicated: LV Ejection Fraction >/= 40%
- ACEI/ARB
Patient already on ACEI/ARB: No
Heart Failure ACEI/ARB Not Indicated: LV Ejection Fraction > 40%
- Beta Jia
Patient already on Evidence Based Beta Jia: No
Heart Failure Evidence Based Beta Jia Not Indicated: LV Ejection Fraction > 40%
- Mineralocorticord Receptor Antagonist
Patient already on MRA: No
Heart Failure MRA Not Indicated: LV Ejection Fraction > 40%
- SGLT-2 Inhibitor
Patient already on SGLT-2 Inhibitor: Yes
- NYHA CHF Classification
NYHA CHF Classification Level: Class III - Symptoms w/ min exertion, interferes w/ nml daily activity (critical )
- ACC/AHA Stage
ACC/AHA Stage: Stage C: Symptomatic Heart Failure
== END 2024-12-09 16:08 | disposition home or self-care (01) | DRG 286 ==
LOC: 4 EAST ACU 16:26
PROVIDERS: Emergency Medicine; Internal Medicine; Internal Medicine Cardiovascular Disease; Physician Assistant; Physician Assistant Medical; ADMITTING PHYSICIAN Internal Medicine; ATTENDING PHYSICIAN Hospitalist; CONSULT PHYSICIAN Internal Medicine; EMERGENCY PHYSICIAN Student in an Organized Health Care Education/Training Program; FAMILY PHYSICIAN Family Medicine
PROC: B3101ZZ Fluoroscopy of Thoracic Aorta using Low Osmolar Contrast (ICD-10-PCS; 2024-12-06)
PROC: B2151ZZ Fluoroscopy of Left Heart using Low Osmolar Contrast (ICD-10-PCS; 2024-12-06)
PROC: 4A023N8 Measurement of Cardiac Sampling and Pressure, Bilateral, Percutaneous Approach (ICD-10-PCS; 2024-12-06)
PROC: B2111ZZ Fluoroscopy of Multiple Coronary Arteries using Low Osmolar Contrast (ICD-10-PCS; 2024-12-06)
DX: I11.0 Hypertensive heart disease with heart failure (principal); I50.33 Acute on chronic diastolic (congestive) heart failure; I31.39 Other pericardial effusion (noninflammatory); I08.3 Combined rheumatic disorders of mitral, aortic and tricuspid valves; I25.10 Atherosclerotic heart disease of native coronary artery without angina pectoris; I27.29 Other secondary pulmonary hypertension; E78.00 Pure hypercholesterolemia, unspecified; G89.29 Other chronic pain; G47.00 Insomnia, unspecified; M54.12 Radiculopathy, cervical region; M19.90 Unspecified osteoarthritis, unspecified site; H40.9 Unspecified glaucoma; Z90.710 Acquired absence of both cervix and uterus; Z87.891 Personal history of nicotine dependence; Z88.6 Allergy status to analgesic agent; R09.02 Hypoxemia; I5A Non-ischemic myocardial injury (non-traumatic); G89.4 Chronic pain syndrome; K21.9 Gastro-esophageal reflux disease without esophagitis; E66.9 Obesity, unspecified; Z68.35 Body mass index [BMI] 35.0-35.9, adult; Z11.52 Encounter for screening for COVID-19; Z82.49 Family history of ischemic heart disease and other diseases of the circulatory system; Z79.899 Other long term (current) drug therapy; F32.A Depression, unspecified
CPT/HCPCS: 94727; 94729; 71275; 80048; 80053; 80061; 83735; 83880; 84145; 84443; 84484; 85025; 85027; 87502; 87811; 93005; 93306; 93460; 93567; 94060; 97162; 97530; 99152; 99153; 99285; C1769; C1894; Q9967

== ENCOUNTER → 2024-12-25 09:20 | Outpatient (REF) | payer MEDICARE, BC, SELFPAY | LOC: RAD 09:20 | PROVIDERS: ATTENDING PHYSICIAN Nurse Practitioner Acute Care | DX: I35.0 Nonrheumatic aortic (valve) stenosis (principal) | CPT/HCPCS: 74174; 75572; Q9967 ==

== ENCOUNTER 2025-01-04 05:35 | Inpatient (IN) | payer MEDICARE, BC, SELFPAY ==
[2025-01-02 12:43] LABS: % Basophils 0.7 % (0-2); % Eosinophils 1.7 % (0-6); % Immature Granulocytes 0.3 % (0-0.5); % Lymphocytes 24.1 % (20.5-51.1); % Monocytes 5.8 % (1.7-9.3); % Neutrophils 67.4 % (42.2-75.2); Absolute Basophils 0.1 10^3/uL (0-0.2); Absolute Eosinophils 0.1 10^3/uL (0-0.7); Absolute Lymphocytes 1.7 10^3/uL (1.2-3.4); Absolute Monocytes 0.4 10^3/uL (0.1-0.6); Absolute Neutrophils 4.7 10^3/uL (1.4-6.5); Hematocrit 43.4 % (37.0-47.0); Hemoglobin 14.8 g/dL (12.0-16.0); Mean Corp Hgb Conc. 34.1 g/dL (33.0-37.0); Mean Corpuscular Volume 84.9 fL (81.0-99.0); Mean Platelet Volume 9.3 fL (7.4-10.4); Nucleated Red Blood Cells % 0 %; Platelet Count 287 10^3/uL (130-400); Red Blood Cell Count 5.11 10^6/uL (4.20-5.40); Red Cell Dist. Width 12.8 % (11.5-14.5); White Blood Cell Count 6.9 10^3/uL (4.8-10.8)
[2025-01-02 12:45] LABS: Urine Albumin Negative (Neg - Trace); Urine Bilirubin Negative (Negative); Urine Character Slightly Cloudy (Clear); Urine Color Yellow; Urine Glucose 4+ (Negative); Urine Ketone Negative (Negative); Urine Leukocyte 2+ (Negative); Urine Nitrite Negative (Negative); Urine Occult Blood Negative (Negative); Urine Urobilinogen Negative (Neg - 1+)
[2025-01-02 12:54] LABS: INR 1.04; PT 13.9 Sec (11.4-14.6)
[2025-01-02 12:55] LABS: APTT 38.2 Sec (23.4-35.0)
[2025-01-02 12:55] LABS: Urine Squamous Cell 16-20 /LPF (Few)
[2025-01-02 12:56] LABS: Urine Bacteria Few (Negative)
[2025-01-02 12:57] LABS: Urine Red Blood Cell 0-2 /HPF (0-2)
[2025-01-02 13:12] LABS: ALT (SGPT) 17 U/L (0-35); AST (SGOT) 23 U/L (14-36); Albumin 4.6 g/dl (3.5-5.0); Alkaline Phosphatase 103 U/L (38-126); Blood Urea Nitrogen 24 mg/dl (7-17); Calcium 9.6 mg/dl (8.4-10.2); Carbon Dioxide 32 mmol/L (22-30); Chloride 98 mmol/L (98-107); Direct Bilirubin 0.3 mg/dl (0.0-0.4); Glucose 110 mg/dl (70-99); Potassium 3.4 mmol/L (3.5-5.1); Sodium 143 mmol/L (135-145); Total Bilirubin 0.7 mg/dl (0.2-1.3); Total Protein 7.2 g/dl (6.3-8.2); eGFR 50.48
[2025-01-02 13:19] LABS: NT-proBNP 2480 pg/ml
[2025-01-02 14:28] LABS: Glycohemoglobin (HgbA1c) 5.4 % (4.0-5.6)
--- NOTE | 2025-01-02 14:36 | CM ---
Chart reviewed. Met with the patient and her son in PAT. Reviewed preoperative and postoperative instructions and restrictions, along with showering guidelines. Gave patient TAVR Book. Patient is agreeable to a visit by CT Transitional RN.
Patient is independent of ADLS, lives alone in a 1 STH, ramp access, ambulates with a SPC. Patient also has a wheelchair and RW at home. Patient with 2 supportive sons. 1 lives within 1 mile. Plan is for the patient to return home with CT
Transitional RN. CM to follow
[2025-01-04] VITALS (23 sets, daily range): BP systolic 105–164; BP diastolic 45–87; BMI 35.6
--- NOTE | 2025-01-04 06:26 | PTCARENOTE ---
Rec'd pt as admission for TVAR procedure at 0530. EKG strip obtained. Pt SR on TELE monitor, VSS, and AAO*3. Pt denies any pain or discomfort. Home med rec complete, last medicated taken was plavix 75mg at 03:25 AM. Pt stated she was NPO since 9
PM last night. Surgery prep complete. Pt updated on plan of care and now resting with call senior in reach and plan of care ongoing.
[2025-01-04] MEDS: ANCEF 10 IV (07:04)
[2025-01-04 08:31] LABS: ACT-LR - POC 273 Seconds (116-155)
--- NOTE | 2025-01-04 08:55 | W.CVOR.SURPR ---
CVOR Surgeon Immed Pre Op
-
I have examined this patient prior to performance of the scheduled procedure.
The patient's condition is unchanged from the time of the dictated/written History and
Physical and the patient is able to undergo the scheduled procedure.
--- NOTE | 2025-01-04 08:56 | W.IMMPOSTOP ---
Addendum entered and electronically signed by Abraham March MD 01/04/25 09:53:
[id number]
Original Note:
Surgical Immed Post Op Note
-
STRUCTURAL HEART PROCEDURE NOTE: TAVR
Preoperative Dx:
Severe-approaching critical aortic stenosis (P/M: 96/63, YVONNE 0.5, Mixer Slagman 4.97)
Moderate MAC, moderate MR
HTN/HLD
Cervical radiculopathy
OA - significant in B/L knees limiting ambulatory abilities
Insomnia
Glaucoma
GERD w/ hiatal hernia
Chronic pain syndrome
Former smoker
Postoperative Dx:
Same
Aceoo-st-ilmjqvo combined systolic & diastolic CHF w/ elevated LVEDP (25mmHg)
Procedures:
1) L PLYWOOD STOCK GRADER access w/ limited tactile, U/S, and fluoroscopic guidance, micropuncture technique, limited angiography, 8Fr dilator placement
2) Perclose placement x 2 into L PLYWOOD STOCK GRADER, 8Fr sheath placement
3) R CFV access w/ U/S and fluoroscopic guidance, micropuncture technique, long 6Fr sheath placement
4) R PLYWOOD STOCK GRADER access w/ limited tactile, U/S, and fluoroscopic guidance, micropuncture technique, limited angiography, long 6Fr sheath placement
5) Placement of temporary RV pacing wire, threshold testing
6) Placement of pigtail catheter in RCC w/ limited aortography & confirmation of co-planar valve deployment angles
7) Serial dilation of L ileofemoral system w/ subsequent placement of De La O E-sheath - systemic heparinization
8) Wire purchase across stenotic AV (AL-1, soft-tip straight, LVEDP assessment, extra-stiff)
9) Pre-TAVR BAV w/ 16 KI balloon
10) L TF TAVR w/ 20mm FRANCISCO 3 Resilia
11) Completion aortography
12) Completion TTE (mean gradient 20mmHg, no AI/PVL)
13) Removal of kgikm-rccntjcj-jgrrwp/ De La O E-sheath w/ L PLYWOOD STOCK GRADER mgmt w/ perclose sutures x 2
14) Completion L ileofemoral angiography w/ subsequent placement of 6Fr angioseal in L PLYWOOD STOCK GRADER; manual pressure
15) Removal of temporary pacing wire
16) Removal of R PLYWOOD STOCK GRADER sheath w/ mgmt w/ 6Fr angioseal; manual pressure
17) Removal of R CFV sheath
Business Systems Developer:
Dr. Sabino Fuentes
Cardiac Surgeon:
Dr. Abraham March
Anesthesia:
MAC & local to B/L groins
Cath Data:
Start: 0755, Deploy: 0835, End: 0847
FT: 7.9min, mGy: 323.32, DAP: 34.8441, Contrast: 80
Post-TTE: mean 20, no AI/PVL; LVEDP: 25
Implants:
De La O Lifesciences, 20mm FRANCISCO 3 Resilia, SN: [id number]
Perclose x 2 to R PLYWOOD STOCK GRADER
6Fr angioseal x 2 to B/L PLYWOOD STOCK GRADER
Complications:
Transient BBB following BAV, resolved post TAVR; no pauses/bradycardia/pacing requirements
Condition:
Stable/guarded to recovery
--- NOTE | 2025-01-04 09:02 | ITS.CL.TAVR ---
Project Accountant - TAVR Report
TAVR PRocedure
Procedure Report:
TRANSCATHETER AORTIC VALVE REPLACEMENT REPORT
Date: 01/04/2025
Referring physician: Kamar Seo M.D., Ph.D.
Preop diagnosis: Severe approaching critical aortic valve stenosis.
Postop diagnosis: Severe approaching critical aortic valve stenosis, acute on chronic heart failure with preserved ejection fraction.
Procedure: Aortic valve balloon valvuloplasty using a #16 Marian valvuloplasty balloon, transcatheter aortic valve replacement (TAVR) using a # 20 De La O MARYSOL S3 Ultra Resilia.
Operators: Sabino Fuentes DO, Abraham March M.D.
Findings: Severely calcified and stenotic aortic valve.
Anesthesia: Conscious sedation was provided by the anesthesia staff.
Estimated blood loss: Negligible.
Complications: None.
Condition: Stable
Procedure:
The patient was brought to the cardiac sleep lab technologist after consent and was prepped and draped in standard sterile fashion. Conscious sedation was provided by the anesthesia staff. After a 'Time Out,' bilateral common femoral arteries and the right
femoral common vein were access using a modified Seldinger technique with a micropuncture kit under ultrasound guidance. A 6 Bulgarian sheath was placed in the right femoral vein. Angiography performed through the micropuncture sheath confirmed
satisfactory arterial placement in the right common femoral artery. The micropuncture sheath was replaced with a 6Fr sheath in the right DYE WORKER. Angiography through the micropuncture kit confirmed satisfactory arterial placement in the left common
femoral artery. The left DYE WORKER was dilated with an 8FR dilator and preclosed with two Perc-Close devices. An 8Fr sheath was placed in the LCFA. A temporary pacing wire was advanced through the right femoral vein and into the right ventricle. The
pacemaker demonstrated good capture and was set to back up. A 5Fr pigtail catheter was advanced through the right femoral sheath and seated in the right coronary cusp. Angiography confirmed co-planar angles.
An AL-1 catheter was advanced through the 8Fr sheath, the J wire was exchanged for an Amplatz Extra-stiff wire and the catheter and the 8 Fr sheath was removed. A 14 Fr dilator was advanced over the Extra-stiff wire to the descending aorta. The
dilator was removed and the 14 Fr De La O E-sheath was inserted over the wire and into the descending aorta. Heparin 7000 units was given. The MARYSOL S3 was prepared on the back table. Orientation was confirmed by both physicians. The AL-1
catheter was re-advanced through the E-sheath to the level of the ascending aorta. The Extra-stiff wire was removed and a soft tip straight wire was advanced through the AL-1. The straight tip wire was used to cross the aortic valve and the
catheter was advanced into the left ventricle. The straight wire was removed and an Amplatz Extra-stiff wire with curved proximal end was advanced through the catheter and into the left ventricle. The wire was seated in the apex and the catheter
was removed. ACT was checked and confirmed to be > 250 seconds.
A #16 Revillo valvuloplasty balloon was advanced over the Extra-stiff wire and into the aortic annulus. Valvuloplasty was performed under rapid pacing with good balloon expansion. The valvuloplasty balloon was removed.
The valve was advanced over the Extra-stiff wire and into the descending aorta. The balloon was withdrawn and the valve was mounted on the balloon. The valve was advanced over the aortic arch and into the aortic valve annulus. The pusher device
was withdrawn to allow for balloon expansion. Low volume aortography confirmed good position of the valve. The valve was deployed during rapid ventricular pacing. Echocardiography and aortography confirmed a good result with no aortic valve
insufficiency and a 20 mmHg mean gradient. The valve deployment system was removed. The De La O E sheath was then removed and hemostasis obtained with the two perclose sutures and a supplemental 6 Bulgarian Angio-Seal. Final angiography demonstrated
no evidence of ileofemoral dissection/perforation and good runoff below the common femoral artery. The pacemaker and the pigtail catheter were removed. The right femoral artery sheath was removed using a 6Fr angioseal. The right femoral venous
sheath was removed and manual pressure was applied with excellent hemostasis. Protamine 30 mg was given at the end of the case.
Radiation
Dose (mGy): 323.32
DAP (cm2.Gy): 34.8441
Fluoroscopy time (minutes): 7.9
TAVR Echo Gradient (mmHg): 20
LV (s/x, mmHg): 240/25
TAVR Cath Gradient (mmHg): Not obtained.
Conclusions:
1. Successful placement of #20 Marysol S3 Ultra Resilia aortic valve via left transfemoral approach with no acute complications.
2. Acute on chronic heart failure with elevated filling pressures (LVEDP = 25 at 82.6 kg).
Sabino Fuentes DO, FACC, FACP
Copy to: Kamar Seo M.D., Ph.D., Lory Lester M.D.
[2025-01-04] MEDS: ANCEF IV (09:49)
--- NOTE | 2025-01-04 11:09 | PTCARENOTE ---
Pt back to room after TAVR procedure @ 1015, aaox3, no c/o pain or SOB, b/l groin dsg CDI, no bruising or swelling around sites. SR on the tele monitor, VSS, Pox 98% on 2L O2 via NC. Family at bedside, call senior within reach. Pt and family updated
on POC and in agreement.
[2025-01-04] MEDS: THERAGRAN 1 TABLET PO (11:48)
[2025-01-04] MEDS: CYMBALTA DELAYED RELEASE 30 MG PO (11:48)
[2025-01-04] MEDS: VITAMIN B-12 1000 MCG PO (11:49)
[2025-01-04] MEDS: VITAMIN D3 (cholecalciferol) 25 MCG PO (11:49)
[2025-01-04] MEDS: ANCEF 5 IV (14:28)
--- NOTE | 2025-01-04 14:52 | CM ---
pt in OR/TAVR today, cm following
[2025-01-04] MEDS: NORVASC 10 MG PO (18:27)
--- NOTE | 2025-01-04 20:00 | PTCARENOTE ---
Received pt from previous shift. Systems reviewed, see flowsheets. Pt in NSR on heart monitor. SaO2 97% on RA. B/l groin dressings CDI. No new complaints at this time, will continue to monitor.
[2025-01-04] MEDS: LIPITOR 40 MG PO (22:04)
[2025-01-04] MEDS: RESTORIL 7.5 MG PO (22:04)
[2025-01-04] MEDS: XALATAN OPHTHALMIC SOLUTION 1 DROP BOTH EYES (22:04)
[2025-01-05] VITALS (8 sets, daily range): BP systolic 132–172; BP diastolic 55–82; PULSE 73; O2SAT 96
[2025-01-05] MEDS: LOPRESSOR 12.5 MG PO (00:19)
--- NOTE | 2025-01-05 00:30 | PTCARENOTE ---
Pt went into two episodes of SVT, a 17 beat run at 23:18 and a 12 beat run at 00:07. VSS, pt asymptomatic. Only complaint at this time is a restless RLE. Vivian GAMBOA notified at 23:28. She came to the bedside and ordered 12.5mg PO
lopressor. Pt placed on 2L NC as she was saturating 89-91% on RA. SaO2 97-98% on 2L NC. Will continue to monitor.
[2025-01-05 02:48] LABS: Hematocrit 35.6 % (37.0-47.0); Hemoglobin 12.4 g/dL (12.0-16.0); Mean Corp Hgb Conc. 34.8 g/dL (33.0-37.0); Mean Corpuscular Hgb 29.1 pg (27.0-31.0); Mean Corpuscular Volume 83.6 fL (81.0-99.0); Mean Platelet Volume 9.4 fL (7.4-10.4); Platelet Count 222 10^3/uL (130-400); Red Blood Cell Count 4.26 10^6/uL (4.20-5.40); White Blood Cell Count 12.1 10^3/uL (4.8-10.8)
[2025-01-05 02:53] LABS: Blood Urea Nitrogen 19 mg/dl (7-17); Calcium 9.3 mg/dl (8.4-10.2); Carbon Dioxide 28 mmol/L (22-30); Chloride 103 mmol/L (98-107); Estimated Creatinine Clearance 53 ml/min; Glucose 101 mg/dl (70-99); Potassium 3.8 mmol/L (3.5-5.1); Sodium 143 mmol/L (135-145); eGFR > 60.00
--- NOTE | 2025-01-05 06:26 | W.PN.CT ---
Today's Communication / Plan
-
-pod #1
-3 episodes of SVT 140s hr 10-17 beats long - asymptomatic. Gave 12.5 mg po Lopressor (not on BB at home)
-nsr 70s overnight. No bradycardia or pauses
-Echo today
-current meds (Lipitor, Plavix, Norvasc, Lasix bid, Farxiga)
-encourage IS, OOB
-possible d/c
Assessment / Plan
-
- Severe-approaching critical aortic stenosis - s/p Pre-TAVR BAV w/ 16 KI balloon; L TF TAVR w/ 20mm FRANCISCO 3 Resilia on 01/04/25, pod #1
- Post-TTE: mean 20, no AI/PVL; LVEDP: 25
- Hxpup-wp-ibrcvlw combined systolic & diastolic CHF w/ elevated LVEDP (25mmHg)
- Moderate MAC, moderate MR
- HTN/HLD
- Cervical radiculopathy
- OA - significant in B/L knees limiting ambulatory abilities
- Insomnia
- Glaucoma
- GERD w/ hiatal hernia
- Chronic pain syndrome
- Former smoker
Discussed patient care with: Nursing and Care Team
Subjective
-
Date of Service: January 05, 2025
Objective Data
-
PT 13.9 Sec (11.4-14.6) 01/02/25 12:23
INR 1.04 01/02/25 12:23
APTT 38.2 Sec (23.4-35.0) H 01/02/25 12:23
Vital Signs
Vital Signs
Temp Pulse Resp BP Pulse Ox
98.2 F 80 16 140/60 94
01/04/25 23:00 01/04/25 23:07 01/04/25 23:00 01/04/25 23:07 01/04/25 23:00
CT Intake/Output/Weight
01/04/25 01/04/25 01/05/25
06:59 18:59 06:59
Intake Total 480 / 480
Output Total 200 / 400 200 / 400
Balance 280 / 80 -200 / 80
SaO2: 94
Physical Exam
-
General: Awake and AOx3
Cardiovascular: Regular rate & rhythm and Murmur (1/6 systolic @ rsb)
Respiratory: Clear and Decreased Breath Sounds
Incision: Other (groins are cdi, soft, nontender, no hematoma b/l)
Extremities: No Edema (2+DPs b/l)
Abdomen: soft, nontender, nondistended, + bowel sounds
Data Reviewed
-
Lab Results: Results Reviewed
Medications: Active Meds Reviewed
Chest X-Ray: Report Reviewed and Image Reviewed
ECG: Report Reviewed and Image Reviewed
--- NOTE | 2025-01-05 07:02 | W.PN.CD ---
Today's Communication / Plan
-
Echocardiogram.
D/C amlodipine.
Start carvedilol 6.25 mg BID.
Discharge pending echo results.
Impression / Plan
-
Impression/Plan: 79 y/o female with obesity, HTN, HLD and HFpEF due in part to critical aortic valve stenosis admitted for elective TAVR.
#Critical
-Chronic, progressive.
-S/P #20 De La O MARYSOL S3 Resilia TAVR, 01/04/2025.
-Echocardiogram pending.
-Telemetry shows no significant pauses/conduction abnormalities.
-Antithrombotic therapy with clopidogrel (ASA allergy).
-Bilateral femoral access sites are C/D/I.
#HFpEF
-Acute on chronic.
-LVEDP = 25 mmHg at the time of cath.
-Resume home furosemide.
-GDMT with dapagliflozin.
#HTN
-Chronic, stable.
-Given SVT, we will d/c amlodipine and start carvedilol 6.25 mg BID.
#SVT
-New diagnosis.
-Carvedilol.
#HLD
-Chronic, stable.
-Maintain atorvastatin 40 mg daily.
#PPx
-Ambulation.
-Home PPI.
#Dispo
-Discharge pending echocardiogram results.
Subjective/Interval History:
TAVR yesterday.
SVT on telemetry, treated with metoprolol.
DATA:
TAVR, 01/04/2025:
Conclusions:
1. Successful placement of #20 Marysol S3 Ultra Resilia aortic valve via left transfemoral approach with no acute complications.
2. Acute on chronic heart failure with elevated filling pressures (LVEDP = 25 at 82.6 kg).
Physical Exam
Vital Signs/Labs
Vital Signs
Temp Pulse Resp BP Pulse Ox
36.8 C 69 16 162/71 98
01/05/25 03:00 01/05/25 05:42 01/05/25 03:00 01/05/25 05:42 01/05/25 03:00
01/03/25 01/04/25 01/05/25
11:59 11:59 11:59
Actual Weight 82.7 kg
01/05/25 02:13
01/05/25 02:13
PT 13.9 Sec (11.4-14.6) 01/02/25 12:23
INR 1.04 01/02/25 12:23
APTT 38.2 Sec (23.4-35.0) H 01/02/25 12:23
Magnesium 2.0 mg/dl (1.6-2.3) 01/05/25 02:13
01/02/25
12:23
Pcx-S-Zewaeqrvpcd Pept 2480
Physical Exam
Constitutional: No acute distress and Comfortable
EENT: Anicteric and Moist mucous membranes
Cardiovascular: Rhythm & rate is regular, Pedal edema is absent, JVD pressure is normal, S1S2 is normal and Murmur/rub/gallop absent
Respiratory: Respiratory effort normal, Lungs clear to auscul., Wheeze Absent, Crackles Absent and Rhonchi Absent
GI: Soft, Distention absent, Flat, Non tender and Normal bowel sounds
Neuro/Psych: AO x 3
Other: Cath Site (Bilateral access sites are C/D/I.)
Data Reviewed
-
Date of Service: January 05, 2025
Medical Decision Making: Reviewed Test Results, Independent Historian Assessment and Test Interpretation
EKG: Tracing Personally Visualized and interpreted and Report Reviewed by me
Echo: Tracing Personally Visualized and interpreted, Report Reviewed by me and Ordered by me
X-Ray/CT/US/MRI/NUC/PET: Image Personally Visualized and interpreted and Report Reviewed by me
Medical Tests (PFT, Pathology etc): Image Personally Visualized and interpreted and Report Reviewed by me
Labs: Labs Reviewed by me
Old Records: Reviewed
--- NOTE | 2025-01-05 07:43 | W.PN.ANS.POP ---
Anesthesia Post Operative
- Anesthesia Post Op Note
Vital Signs Stable-See Nursing Note: Yes
Airway Patent: Yes
Adequate Pain Control: Yes
Change in Mental Status: No
Current Postoperative Nausea & Vomiting: No
Anesthesia Complications: No
General Anesthetic Recall: No
Unplanned Admission: No
Post Op Hydration Adequate: Yes
[2025-01-05] MEDS: VITAMIN B-12 1000 MCG PO (08:30)
[2025-01-05] MEDS: THERAGRAN 1 TABLET PO (08:30)
[2025-01-05] MEDS: VITAMIN D3 (cholecalciferol) 25 MCG PO (08:30)
[2025-01-05] MEDS: PROTONIX 40 MG PO (08:30)
[2025-01-05] MEDS: LASIX 80 MG PO (08:30)
[2025-01-05] MEDS: COREG 6.25 MG PO (08:31)
[2025-01-05] MEDS: PLAVIX 75 MG PO (08:31)
[2025-01-05] MEDS: CYMBALTA DELAYED RELEASE 30 MG PO (08:31)
--- NOTE | 2025-01-05 09:33 | W.DCSUMMARY ---
Addendum entered and electronically signed by JOSI Goodson 01/05/25 13:51:
Home Omeprazole changed to Protonix while on Plavix
Original Note:
Documented by User: Elsy Underwood PA-C 01/05/25 12:28
Discharge Summary
Discharge Data
Date of Admission: 01/04/25
Date of Discharge: 01/05/25
-
Pending Results: No
Hospital Course
Primary care physician:
Dr. Lory Cunningham MD.
Outpatient welfare case worker:
Dr. Jaylon Hatch MD.
Inpatient consultants:
[facility] cardiology
Procedures:
1. Pretranscatheter aortic valve balloon valve angioplasty
2. Left transfemoral transcatheter aortic valve replacement with number 20 mm [place] 3 valve
Primary Diagnosis:
1. Severe aortic valve stenosis
2. Mild mitral stenosis
3. Moderate mitral regurgitation with moderate mitral annular calcification
4. Hypertension
5. Hyperlipidemia
6. Gastroesophageal reflux disease
7. Osteoarthritis of the hips/knees
8. Glaucoma
9. Degenerative joint disease with hand paresthesias
10. Chronic pain syndrome
11. Insomnia
12. Cervical radiculopathy
13. Former smoker
14. Acute on chronic combined systolic and diastolic congestive heart failure with elevated left ventricular end-diastolic pressure of 25 mmHg
Secondary Diagnoses:
1. Severe aortic valve stenosis
2. Mild mitral stenosis
3. Moderate mitral regurgitation with moderate mitral annular calcification
4. Hypertension
5. Hyperlipidemia
6. Gastroesophageal reflux disease
7. Osteoarthritis of the hips/knees
8. Glaucoma
9. Degenerative joint disease with hand paresthesias
10. Chronic pain syndrome
11. Insomnia
12. Cervical radiculopathy
13. Former smoker
14. Acute on chronic combined systolic and diastolic congestive heart failure with elevated left ventricular end-diastolic pressure of 25 mmHg
HPI:
Patient is an 79-year-old female who is being seen and followed by the transcatheter aortic valve replacement team. Multidisciplinary discussion was had between CT surgery and cardiology and the patient was deemed appropriate candidate to undergo
transcatheter aortic valve replacement. She was seen in the office electively as an outpatient and evaluated by Dr. Abraham March MD. she presented electively to [facility] on 01/04/2025 to undergo the procedure described above.
Hospital course:
Patient tolerated the procedure well, conscious sedation was used. Patient was transported to [employer] [facility] where she underwent her postoperative recovery. She did not necessitate any pressors postoperatively. Postoperative EKG revealed normal
sinus rhythm at 70 bpm. Bilateral groins were stable and she was transferred to the interventional unit. Patient had no acute issues or events overnight.
On postoperative day 1 she was doing well. She had several intermittent episodes of supraventricular tachycardia with rates in the 140s overnight. Discussion was had with cardiology. She was started on Coreg 6.25 mg twice daily. No rhythm star
monitor was warranted. Morning EKG revealed normal sinus rhythm at 73 bpm. Postoperative day 1 echocardiogram revealed�
Follow up BMP in one week per Dr. Sabino Fuentes DO.
Home medication changes:
Please pay attention to the following medication changes:
Take Carvedilol 6.25 mg BID
Stop taking the following medications:
Stop taking Amlodipine 10 mg daily
Discharge Plan
-
Patient Disposition: Home (Routine Discharge)
Discharge Diagnosis/Procedures: TF-TAVR
Condition: Good
Diet: Low Cholesterol and Low Sodium
Activity: As tolerated
Driving Restrictions: No driving for 1 week
Bathing Restrictions: OK to Shower
Blood Work: Follow up BMP in 1 week on 01/12/25
Others Tests: Follow Up Echocardiogram: 02/01/2025 at [facility]
Other Services: Cardiac Rehab
Wound Care: Please do not apply lotions, creams or powders to groin areas. Please monitor for increased redness, pain, swelling and drainage. If any occur please contact your doctor.
Specialty Instructions: Weigh Daily- Call MD for wt gain/loss 3 lbs overnight/5 lbs in 1 week
Referrals:
CT Transitional Care Nurse [Outside] - 02/02/25 10:40 am
Lory Lester MD [Family Provider] -
Tanika Rodriguez CRNP [Specified Professional Personl] - 02/02/25 10:40 am
Additional Discharge Medication Instructions: Please pay attention to the following medication changes:
Take Carvedilol 6.25 mg BID
Stop taking the following medications:
Stop taking Amlodipine 10 mg daily
Prescriptions:
New
carvedilol 6.25 mg Tablet
6.25 mg PO BID Qty: 60 0RF
Rx Instructions:
Please obtain refills from Cardiology
Continued
cyanocobalamin (vitamin B-12) 1,000 mcg Tablet
1,000 mcg PO DAILY Qty: 0
Centrum Silver 1 EACH tablet
1 tab PO DAILY
cholecalciferol (vitamin D3) [Vitamin D3] 1,000 UNIT tablet
1,000 unit PO DAILY
omeprazole 20 MG tablet,delayed release (DR/EC)
20 mg PO DAILY
latanoprost 0.005 % Drops
1 drp BOTH EYES HS
temazepam 7.5 mg Capsule
7.5 mg PO HS
duloxetine [Cymbalta] 30 mg Capsule,Delayed Release(Dr/Ec)
30 mg PO DAILY
magnesium glycinate 100 mg Tablet
200 mg PO DAILY
dapagliflozin propanediol 10 mg Tablet
10 mg PO DAILY Qty: 30 1RF
furosemide 80 mg Tablet
80 mg PO BID@0800,1600 Qty: 60 1RF
atorvastatin 40 mg Tablet
40 mg PO HS Qty: 30 1RF
clopidogrel [Plavix] 75 mg Tablet
75 mg PO DAILY Qty: 30 1RF
Patient Comments:
01/02-01/04 in lieu of aspirin
Discontinued
amlodipine 10 MG tablet
10 mg PO DAILY
Discharge Orders:
Discharge Patient (As Directed); Ordered 01/05/25
Ordered By: Loan Keys
Care Plan Goals
Care Plan Goals:
Problem: Readiness for enhanced knowledge related to diagnosis and treatment plan
Goal: Understand your diagnosis and treatment plan needs, including medications if applicable.
Instructions: Know your diagnosis, underlying causes and treatment plan options, including medications if applicable. Consult with your health care team to learn about your diagnosis and treatment plan, including medications if applicable.
Discharge Date and Time
Print Language: SAMMARINESE

Documented by User: JOSI Goodson 01/05/25 13:07
Discharge Summary
Discharge Data
Date of Admission: 01/04/25
Date of Discharge: 01/05/25
Hospital Course
Primary care physician:
Dr. Lory Cunningham MD.
Outpatient welfare case worker:
Dr. Jaylon Hatch MD.
Inpatient consultants:
[facility] cardiology
Procedures:
1. Pretranscatheter aortic valve balloon valve angioplasty
2. Left transfemoral transcatheter aortic valve replacement #20 mm [place] 3 valve
Primary Diagnosis:
1. Severe aortic valve stenosis
2. Mild mitral stenosis
3. Moderate mitral regurgitation with moderate mitral annular calcification
4. Hypertension
5. Hyperlipidemia
6. Gastroesophageal reflux disease
7. Osteoarthritis of the hips/knees
8. Glaucoma
9. Degenerative joint disease with hand paresthesias
10. Chronic pain syndrome
11. Insomnia
12. Cervical radiculopathy
13. Former smoker
14. Acute on chronic combined systolic and diastolic congestive heart failure with elevated left ventricular end-diastolic pressure of 25 mmHg
Secondary Diagnoses:
1. Severe aortic valve stenosis
2. Mild mitral stenosis
3. Moderate mitral regurgitation with moderate mitral annular calcification
4. Hypertension
5. Hyperlipidemia
6. Gastroesophageal reflux disease
7. Osteoarthritis of the hips/knees
8. Glaucoma
9. Degenerative joint disease with hand paresthesias
10. Chronic pain syndrome
11. Insomnia
12. Cervical radiculopathy
13. Former smoker
14. Acute on chronic combined systolic and diastolic congestive heart failure with elevated left ventricular end-diastolic pressure of 25 mmHg
HPI:
Patient is an 79-year-old female who presented electively to [facility] on 01/04/2025 for elective TAVR
Hospital course:
Patient tolerated the procedure well, conscious sedation was used. Patient was transported to [employer] [facility] where she underwent her postoperative recovery. She did not necessitate any pressors postoperatively. Postoperative EKG revealed normal
sinus rhythm at 70 bpm. Bilateral groins were stable and she was transferred to the interventional unit. Patient had no acute issues or events overnight.
On postoperative day 1 she was doing well. She had several intermittent episodes of supraventricular tachycardia with rates in the 140s overnight. Discussion was had with cardiology. She was started on Coreg 6.25 mg twice daily. No rhythm star
monitor was warranted. Morning EKG revealed normal sinus rhythm at 73 bpm. Postoperative day 1 echocardiogram revealed AV 43/24 (prior 34/18). Deemed stable for DC home
Follow up BMP in one week per Dr. Sabino Fuentes DO.
Home medication changes:
Please pay attention to the following medication changes:
Take Carvedilol 6.25 mg BID
Stop taking the following medications:
Stop taking Amlodipine 10 mg daily
Discharge Plan
-
Patient Disposition: Home (Routine Discharge)
Discharge Diagnosis/Procedures: TF-TAVR
Condition: Good
Diet: Low Cholesterol and Low Sodium
Activity: As tolerated
Driving Restrictions: No driving for 1 week
Bathing Restrictions: OK to Shower
Blood Work: Follow up BMP in 1 week on 01/12/25
Others Tests: Follow Up Echocardiogram: 02/01/2025 at [facility]
Other Services: Cardiac Rehab
Wound Care: Please do not apply lotions, creams or powders to groin areas. Please monitor for increased redness, pain, swelling and drainage. If any occur please contact your doctor.
Specialty Instructions: Weigh Daily- Call MD for wt gain/loss 3 lbs overnight/5 lbs in 1 week
Referrals:
CT Transitional Care Nurse [Outside] - 02/02/25 10:40 am
Lory Lester MD [Family Provider] -
Tanika Rodriguez CRNP [Specified Professional Personl] - 02/02/25 10:40 am
Additional Discharge Medication Instructions: Please pay attention to the following medication changes:
Take Carvedilol 6.25 mg BID
Stop taking the following medications:
Stop taking Amlodipine 10 mg daily
Prescriptions:
New
carvedilol 6.25 mg Tablet
6.25 mg PO BID Qty: 60 0RF
Rx Instructions:
Please obtain refills from Cardiology
Continued
cyanocobalamin (vitamin B-12) 1,000 mcg Tablet
1,000 mcg PO DAILY Qty: 0
Centrum Silver 1 EACH tablet
1 tab PO DAILY
cholecalciferol (vitamin D3) [Vitamin D3] 1,000 UNIT tablet
1,000 unit PO DAILY
omeprazole 20 MG tablet,delayed release (DR/EC)
20 mg PO DAILY
latanoprost 0.005 % Drops
1 drp BOTH EYES HS
temazepam 7.5 mg Capsule
7.5 mg PO HS
duloxetine [Cymbalta] 30 mg Capsule,Delayed Release(Dr/Ec)
30 mg PO DAILY
magnesium glycinate 100 mg Tablet
200 mg PO DAILY
dapagliflozin propanediol 10 mg Tablet
10 mg PO DAILY Qty: 30 1RF
furosemide 80 mg Tablet
80 mg PO BID@0800,1600 Qty: 60 1RF
atorvastatin 40 mg Tablet
40 mg PO HS Qty: 30 1RF
clopidogrel [Plavix] 75 mg Tablet
75 mg PO DAILY Qty: 30 1RF
Patient Comments:
01/02-01/04 in lieu of aspirin
Discontinued
amlodipine 10 MG tablet
10 mg PO DAILY
Discharge Orders:
Discharge Patient (As Directed); Ordered 01/05/25
Ordered By: Loan Keys
Care Plan Goals
Care Plan Goals:
Problem: Readiness for enhanced knowledge related to diagnosis and treatment plan
Goal: Understand your diagnosis and treatment plan needs, including medications if applicable.
Instructions: Know your diagnosis, underlying causes and treatment plan options, including medications if applicable. Consult with your health care team to learn about your diagnosis and treatment plan, including medications if applicable.
Discharge Date and Time
Print Language: SAMMARINESE
--- NOTE | 2025-01-05 12:42 | PTCARENOTE ---
Pt is AOx3, no complaints of pain or discomfort. SR on tele monitor, VSS. B/L groin sites CDI. ECHO completed this AM. Call senior within reach.
== END 2025-01-05 15:45 | disposition home or self-care (01) | DRG 266 ==
LOC: IVU 05:35
PROVIDERS: Nurse Practitioner; ADMITTING PHYSICIAN Thoracic Surgery (Cardiothoracic Vascular Surgery); CONSULT PHYSICIAN Student in an Organized Health Care Education/Training Program; FAMILY PHYSICIAN Family Medicine
PROC: 02RF38Z Replacement of Aortic Valve with Zooplastic Tissue, Percutaneous Approach (ICD-10-PCS; 2025-01-04)
DX: I35.0 Nonrheumatic aortic (valve) stenosis (principal); Z00.6 Encounter for examination for normal comparison and control in clinical research program; I50.43 Acute on chronic combined systolic (congestive) and diastolic (congestive) heart failure; I47.10 Supraventricular tachycardia, unspecified; I34.2 Nonrheumatic mitral (valve) stenosis; I34.0 Nonrheumatic mitral (valve) insufficiency; E78.5 Hyperlipidemia, unspecified; I11.0 Hypertensive heart disease with heart failure; M54.12 Radiculopathy, cervical region; M16.0 Bilateral primary osteoarthritis of hip; G47.00 Insomnia, unspecified; H40.9 Unspecified glaucoma; K21.9 Gastro-esophageal reflux disease without esophagitis; K44.9 Diaphragmatic hernia without obstruction or gangrene; G89.4 Chronic pain syndrome; I45.4 Nonspecific intraventricular block; Z79.899 Other long term (current) drug therapy; Z87.891 Personal history of nicotine dependence
CPT/HCPCS: 93308; 33361; 36415; 71045; 71046; 80048; 80053; 81003; 81015; 82248; 83036; 83735; 83880; 85025; 85027; 85610; 85730; 86850; 86900; 86901; 87070; 87086; 93005; 93321; 93325; C1726; C1760; C1769; C1894; Q9967

== ENCOUNTER → 2025-01-31 12:59 | Outpatient (REF) | payer MEDICARE, BC, SELFPAY | LOC: RCS 12:59 | PROVIDERS: ATTENDING PHYSICIAN Internal Medicine Cardiovascular Disease; FAMILY PHYSICIAN Family Medicine | DX: Z95.2 Presence of prosthetic heart valve (principal); I10 Essential (primary) hypertension; E78.5 Hyperlipidemia, unspecified; R01.1 Cardiac murmur, unspecified; I27.20 Pulmonary hypertension, unspecified; I25.10 Atherosclerotic heart disease of native coronary artery without angina pectoris; I5A Non-ischemic myocardial injury (non-traumatic) | CPT/HCPCS: 93306 ==